=== PATIENT | male | born 1980 | race Caucasian/White ===

== ENCOUNTER 2016-05-04 16:59 | Observation (INO) | payer MEDICARE ==
[2016-05-04] MEDS ORDERED: MORPHINE SULFATE 4 MG INJ IV ONE (17:12)
--- NOTE | 2016-05-04 17:20 | ERPHSYRPT ---
- History of Present Illness Time Seen by Provider: 05/04/16 17:09 Historian: patient Exam Limitations: no limitations Patient Subjective Stated Complaint: PT REPORTS SUBSTERNAL CHEST PAIN BEGINNING THIS MORNING-STATES HE HAS HAD EPISODES OF BREAKING OUT IN A SWEAT-DENIES SOB- DENIES N/V/D-REPORTS COUGH BEGINNING 2 HRS AGO Triage Nursing Assessment: PT PINK WARM ET DRY-A & O X 3-NO COUGH NOTED DURING TRIAGE-RESP NONLABORED-RIGHT RADIAL PULSE REGULAR ET STRONG Physician History: 35-year-old white male with history of diabetes, renal failure, chronic pain, obstructive sleep apnea, myocardial infarction. Patient arrives with complaint of a pain in his substernal region nonradiating described as a pressure with occasional sharp intermittent components pain since noon today. He is not short of breath he has no nausea no vomiting no diarrhea he has no other complaints.. Past medical history includes diabetes, renal failure, chronic pain, obstructive sleep apnea, CVA, congestive heart failure, hypercholesterolemia, high blood pressure, myocardial infarction, bronchitis, pneumonia, anxiety, depression, prostate problems, CVA in 2001, [place] Past surgical history includes cardiac catheter, CABG, orthopedic surgery, anterior cruciate ligament repaired, cyst removed on left arm, cataract surgery Patient does state he is supposed to have surgery on his left anterior cruciate ligament next week and so he has not taken any aspirin. Timing/Duration: today, other (symptoms since noon) Activities at Onset: none Quality: pressure, sharpness Location: substernal Chest Pain Radiation: no radiation Severity of Pain-Max: moderate Severity of Pain-Current: moderate Modifying Factors: Improves With: nothing. Worsens With: antacids, breathing, coughing, defecating, eating, exertion, lying down, morphine, movement, nitroglycerin, oxygen, palpation, rest, aspirin, sitting up, change in position Associated Symptoms: No nausea, No vomiting, No palpitations, No heartburn, No abdominal pain, No shortness of breath, No cough, No hurts to breathe, No diaphoresis, No chills, No fever, No fatigue, No weakness, No swelling/lump in chest, No syncope, No rash, No headache, No dizziness, No edema, No back pain Prior Chest Pain/Cardiac Workup: heart attack Nitro Today/Relief: no nitro taken today Aspirin Treatment Today: no aspirin today Allergies/Adverse Reactions: hydroxyzine HCl [From Atarax] Adverse Reaction (Verified 05/04/16 17:05) Home Medications: Aspirin 81 mg PO DAILY 01/28/16 [History] Clonazepam [Klonopin] 1 mg PO BID 01/28/16 [History] Furosemide 20 mg [Lasix 20 mg] 20 mg PO BID 01/28/16 [History] Hydrocodone/APAP 10/325 mg [[place] 10/325 MG Tablet] 1 tab PO QID 01/28/16 [History] Lisinopril 20 mg [Zestril 20 MG] 20 mg PO DAILY 01/28/16 [History] PANTOPRAZOLE 40 mg Tablet [Protonix 40MG Tablet] 40 mg PO DAILY 01/28/16 [ History] Sitagliptin Phosphate [Januvia] 25 mg PO DAILY 01/28/16 [History] Hx Tetanus, Diphtheria Vaccination/Date Given: Yes (2008) Hx Influenza Vaccination/Date Given: No Hx Pneumococcal Vaccination/Date Given: No Immunizations Up to Date: Yes - Review of Systems Constitutional: No Fever, No Chills Eyes: No Symptoms Ears, Nose, & Throat: No Symptoms Respiratory: No Cough, No Dyspnea Cardiac: Chest Pain, No Edema, No Syncope Abdominal/Gastrointestinal: No Abdominal Pain, No Nausea, No Vomiting, No Diarrhea Genitourinary Symptoms: No Dysuria Musculoskeletal: No Back Pain, No Neck Pain Skin: No Rash Neurological: No Dizziness, No Focal Weakness, No Sensory Changes Psychological: No Symptoms Endocrine: No Symptoms All Other Systems: Reviewed and Negative - Past Medical History Pertinent Past Medical History: Yes Neurological History: Stroke ENT History: No Pertinent History Cardiac History: Congestive Heart Failure, High Cholesterol, Hypertension, Myocardial Infarction ([place]) Respiratory History: Bronchitis, Pneumonia, Sleep Apnea Endocrine Medical History: Diabetes Type II Musculoskeletal History: No Pertinent History GI Medical History: GERD History: Renal Disease Psycho-Social History: Anxiety, Depression Male Reproductive Disorders: Prostate Problems Other Medical History: PT HAD A STROKE IN FEB 2012. [place]. [place] in Apr 2011. [place] in September in 2015. Open heart in May - Past Surgical History Past Surgical History: Yes Neuro Surgical History: No Pertinent History Cardiac: CABG, Cardiac Catheterization Respiratory: No Pertinent History Gastrointestinal: No Pertinent History Genitourinary: No Pertinent History Musculoskeletal: Orthopedic Surgery Male Surgical History: No Pertinent History Other Surgical History: ACL REPLACED; CYST REMOVED IN LEFT ARM; CATARACT SURGERY IN 2011 - Social History Smoking Status: Former smoker Exposure to second hand smoke: No Drug Use: none Patient Lives Alone: No Significant Family History: heart disease - Nursing Vital Signs Temperature: 97.6 F Temperature Source: Oral Pulse Rate: 77 Respiratory Rate: 22 Pain Intensity: 6 - Physical Exam General Appearance: no apparent distress, alert Eye Exam: PERRL/EOMI, eyes nml inspection Ears, Nose, Throat Exam: normal ENT inspection, moist mucous membranes Neck Exam: normal inspection, non-tender, supple, full range of motion Respiratory Exam: normal breath sounds, lungs clear, No respiratory distress Cardiovascular Exam: regular rate/rhythm, normal heart sounds Gastrointestinal/Abdomen Exam: soft, No tenderness, No mass Back Exam: normal inspection, No CVA tenderness, No vertebral tenderness Extremity Exam: normal inspection, normal range of motion Neurologic Exam: alert, oriented x 3, cooperative, normal mood/affect, sensation nml, No motor deficits Skin Exam: normal color, warm, dry SpO2 Interpretation: normal (97%) SpO2: 97 Oxygen Delivery: Room Air - Course Nursing assessment & vital signs reviewed: Yes EKG Interpreted by Me: RATE (80 bpm), Sinus Rhythm, NORMAL AXIS, Other (EKG normal sinus rhythm 80 bpm normal axis no acute ST or T wave changes noted) - Radiology Exams Chest X-ray Interpretation: Interpreted by me, Negative, No Pneumonia, No Pneumothorax Ordered Tests: Active Orders 24 hr Category Date Time Status E/M Engineer STAT Care 05/04/16 17:12 Active EKG-ER Only STAT Care 05/04/16 17:12 Active IV Insertion STAT Care 05/04/16 17:12 Active CHEST 1 VIEW (PORTABLE) Stat Exams 05/04/16 17:15 Taken CBC W DIFF Stat Lab 05/04/16 17:40 Completed CMP Stat Lab 05/04/16 17:40 Completed TROPONIN Q3H Lab 05/04/16 17:40 Completed TROPONIN Q3H Lab 05/04/16 20:15 Ordered TROPONIN Q3H Lab 05/04/16 23:15 Ordered TROPONIN Q3H Lab 05/05/16 02:15 Ordered TROPONIN Q3H Lab 05/05/16 05:15 Ordered Medication Summary Discontinued Medications Generic Name Dose Route Start Last Admin Trade Name Freq PRN Reason Stop Dose Admin Aspirin 324 mg 05/04/16 18:31 05/04/16 18:35 Baby Aspirin 81 Mg Chew PO 05/04/16 18:32 324 mg STAT ONE Administration Aspirin Confirm 05/04/16 18:35 Baby Aspirin 81 Mg Chew Administered 05/04/16 18:36 Dose 324 mg .ROUTE .STK-MED ONE Morphine Sulfate 4 mg 05/04/16 17:12 05/04/16 17:28 Morphine Sulfate 4 Mg Inj IV 05/04/16 17:13 4 mg STAT ONE Administration Morphine Sulfate Confirm 05/04/16 17:24 Morphine Sulfate 4 Mg Inj Administered 05/04/16 17:25 Dose 4 mg .ROUTE .STK-MED ONE Lab/Rad Data: Laboratory Result Diagrams 05/04/16 17:40 05/04/16 17:40 Laboratory Results 05/04/16 05/04/16 05/04/16 Range/Units 17:40 17:40 17:40 WBC 7.8 (4.0-10.5) K/mm3 RBC 4.99 (4.1-5.6) M/mm3 Hgb 14.7 (12.5-18.0) gm/dl Hct 44.3 (42-50) % MCV 88.8 (78-100) fl MCH 29.5 (26-32) pg MCHC 33.2 (32-36) g/dl RDW 13.2 (11.5-14.0) % Plt Count 226 (150-450) K/mm3 MPV 10.6 H (6-9.5) fl Gran % 41.6 (36.0-66.0) % Lymphocytes % 46.7 H (24.0-44.0) % Monocytes % 9.6 (0.0-12.0) % Eosinophils % 1.7 (0.00-5.0) % Basophils % 0.4 (0.0-0.4) % Basophils # 0.03 (0-0.4) Sodium 133 L (136-145) mEq/L Potassium 4.3 (3.5-5.1) mEq/L Chloride 96 L (98-107) mEq/L Carbon Dioxide 24.5 (21-32) mEq/L Anion Gap 16.4 H (5-15) MEQ/L BUN 14 (9-20) mg/dL Creatinine 0.76 (0.55-1.30) mg/dl Estimated GFR > 60 ML/MIN Glucose 221 H (70-110) MG/DL Calcium 8.9 (8.5-10.1) mg/dL Total Bilirubin 0.3 (0.2-1.0) mg/dL AST 22 (15-37) U/L ALT 41 (12-78) U/L Alkaline Phosphatase 140 H (46-116) U/L Troponin I < 0.017 (0.000-0.056) ng/ml Serum Total Protein 7.7 (6.4-8.2) gm/dL Albumin 3.7 (3.4-5.0) g/dL - Progress Progress: improved Air Movement: fair Progress Note: 05/04/16 18:32 Patient's chest x-ray and EKG are essentially normal troponin within normal limits. Patient states he is having occasional twinges in his left anterior chest of pain. I have offered to repeat his troponin are asking if they can be admitted for rule out. Will discuss case with Dr. Delacruz. . 05/04/16 19:[address] Portillo is corporate communications manager for Dr. Delacruz, I discussed the patient's case with Dr. portlilo he requested that I discuss this with Dr. Irby, the patient's foundation digger or the foundation digger on-call for him. I discussed the case with Dr. Emory Weiss, patient's labs in the clinical findings were gone over with him. He was agreeable to having the patient admitted here for rule out with Dr. portillo would have to admit patient. Patient will be transferred if there is any problems which come up or elevated enzymes to the hospital where Dr. Emory Weiss is available. This was Relayed to Dr. portillo. She is agreeable to placing patient on observation for chest pain rule out. - Departure Time of Disposition: 19:33 Departure Disposition: Observation Clinical Impression: Chest pain Qualifiers: Chest pain type: unspecified Qualified Code(s): R07.9 - Chest pain, unspecified Condition: Fair Critical Care Time: No
[2016-05-04] MEDS ORDERED: MORPHINE SULFATE 4 MG INJ ONE ×2 (17:24→21:23)
[2016-05-04 17:51] LABS: BASOPHIL % 0.4 % (0.0-0.4); Eosinophil % 1.7 % (0.00-5.0); Granulocytes % 41.6 % (36.0-66.0); Lymphocytes % 46.7 % (24.0-44.0); Mean Cell Volume 88.8 fl (78-100); Mean Corpuscular Hemoglobin 29.5 pg (26-32); Mean Platelet Volume 10.6 fl (6-9.5); Monocytes % 9.6 % (0.0-12.0); Platelet Count 226 K/mm3 (150-450); Red Blood Count 4.99 M/mm3 (4.1-5.6); Red Cell Distribution Width 13.2 % (11.5-14.0); White Blood Count 7.8 K/mm3 (4.0-10.5)
[2016-05-04 18:07] LABS: ALBUMIN 3.7 g/dL (3.4-5.0); ALKALINE PHOSPHATASE 140 U/L (46-116); ANION GAP 16.4 MEQ/L (5-15); BILIRUBIN,TOTAL 0.3 mg/dL (0.2-1.0); BLOOD UREA NITROGEN 14 mg/dL (9-20); CHLORIDE 96 mEq/L (98-107); Carbon Dioxide 24.5 mEq/L (21-32); Glucose 221 MG/DL (70-110); Potassium 4.3 mEq/L (3.5-5.1); SGOT/AST 22 U/L (15-37); SGPT/ALT 41 U/L (12-78); SODIUM 133 mEq/L (136-145); Total Protein 7.7 gm/dL (6.4-8.2)
[2016-05-04] MEDS ORDERED: BABY ASPIRIN 81 MG CHEW PO ONE (18:31)
[2016-05-04] MEDS ORDERED: BABY ASPIRIN 81 MG CHEW ONE (18:35)
[2016-05-04] MEDS ORDERED: Zofran 4 MG/2 ML VIAL IV PRN (20:42)
[2016-05-04] MEDS ORDERED: Senokot-S Tablet PO PRN (20:42)
[2016-05-04] MEDS ORDERED: NovoLIN R SQ PRN (20:42)
[2016-05-04] MEDS ORDERED: MILK OF MAGNESIA 30 ML PO PRN (20:42)
[2016-05-04] MEDS ORDERED: Sodium Chloride 0.9% 500 ML 500 ML IV SCH (20:42)
[2016-05-04] MEDS ORDERED: MORPHINE SULFATE 2 MG INJ IV PRN (20:42)
[2016-05-04] MEDS ORDERED: MAALOX ES 30 ML UNIT DOSE PO PRN (20:42)
[2016-05-04] MEDS ORDERED: TYLENOL 325 MG PO PRN (20:42)
[2016-05-04] MEDS: Klonopin 0.5 MG PO SCH (23:17)
--- NOTE | 2016-05-05 08:12 | PCM.DCORD ---
- Discharge Discharge Date: 05/05/16 Condition: Good Prescriptions: New Naproxen 375 mg [Naprosyn 375 mg] 375 mg PO BID #60 tablet Continue Sitagliptin Phosphate [Januvia] 25 mg PO DAILY Furosemide 20 mg [Lasix 20 mg] 20 mg PO BID PANTOPRAZOLE 40 mg Tablet [Protonix 40MG Tablet] 40 mg PO DAILY Aspirin 81 mg PO DAILY Lisinopril 20 mg [Zestril 20 MG] 20 mg PO DAILY Clonazepam [Klonopin] 1 mg PO BID Hydrocodone/APAP 10/325 mg [[place] 10/325 MG Tablet] 1 tab PO QID Follow up with: GABI ANTOINE [Primary Care Provider] - MICHAEL POLO [ACTIVE STAFF] - 1 Week
--- NOTE | 2016-05-05 08:41 | XRAY ---
Indication: Mid chest pain. Comparison: January 31, 2016 Portable apical lordotic chest again demonstrates normal heart and lungs with a few calcified granulomas and previous CABG surgery. Bony thorax intact. No new/acute findings. Impression: Stable nonacute chest.
[2016-05-05] MEDS: Klonopin 0.5 MG PO SCH (09:26)
[2016-05-05] MEDS ORDERED: Protonix 40MG Tablet PO SCH (10:00)
[2016-05-05] MEDS ORDERED: Januvia 50 MG PO SCH (10:00)
[2016-05-05] MEDS ORDERED: Ecotrin 325 MG PO SCH (10:00)
[2016-05-05] MEDS ORDERED: ECOTRIN 81 MG PO SCH (10:00)
[2016-05-05] MEDS ORDERED: Zestril 20 MG PO SCH (10:00)
[2016-05-05] MEDS ORDERED: LASIX 20 MG PO SCH (10:00)
[2016-05-05] MEDS ORDERED: NON-FORMULARY ITEM (Sitagliptin Phosphate [Januvia] 25 MG) PO SCH (10:00)
[2016-05-05] MEDS ORDERED: NON-FORMULARY ITEM (Aspirin [Aspirin] 81 MG) PO SCH (10:00)
[2016-05-05 11:43] VITALS: BP 117/65; PULSE 87; O2SAT 96
--- NOTE | 2016-05-05 11:43 | SSS ---
DISCHARGE DIAGNOSIS: CHEST PAIN. HISTORY OF PRESENT ILLNESS: The patient is a 35 year-old white male patient presenting with complaints of substernal chest pain beginning general claims agent of 05/04/2016. He presented himself to the emergency room in the early afternoon and he was subsequently admitted to the hospital to rule out myocardial infarction. PAST MEDICAL HISTORY: Significant for previous myocardial infarction. He had heart surgery before. He also has hypertension, hyperlipidemia, anxiety, depression, prostate problems. He reports that he also had previous CVA in 2001. PAST SURGICAL HISTORY: Coronary artery bypass grafting. Orthopedic surgery on his anterior cruciate ligament. SOCIAL HISTORY: The patient does not currently smoke or drink. His reports that they have been under a lot of stress recently. HOME MEDICATIONS: Includes aspirin, Klonopin, Lasix, [place], lisinopril, pantoprazole, and Januvia which he has not been taking recently because he cannot afford it. ALLERGIES: HYDROXYZINE. SENSITIVE TO METFORMIN CAUSED HIM RENAL FAILURE TEMPORARILY. PHYSICAL EXAMINATION: Revealed a moderately obese white male patient who is currently in no obvious distress. His most recent vital signs showed temperature 97.7F, pulse 83, respiratory rate 20, blood pressure 112/70. O2 saturation 97% on room air. HEENT: Normocephalic, atraumatic. Pupils equal round reactive to light. Extraocular movements intact. Oropharynx is pink and moist. NECK: Supple without lymphadenopathy, thyromegaly or JVD. CHEST: Clear to auscultation with good air movement bilaterally. It is nontender to press on the sternal region. He has a scar from median sternotomy. ABDOMEN: Soft, nontender, nondistended without hepatosplenomegaly or masses. EXTREMITIES: Without clubbing, cyanosis or edema. NEUROLOGIC: The patient is alert and oriented x3. LAB DATA AND TESTS: Showed CBC with hemoglobin 14.7, white blood cell count 7,800, PLT count 226,000. His troponins have all been less than 0.017. His metabolic panel showed a nonfasting glucose of 221, BUN 14, creatinine 0.76, sodium 133, potassium 4.3. Liver enzymes were normal. The patient's lipid panel showed LDL cholesterol 102 and HDL 44, triglycerides 463. The patient's EKG showed normal sinus rhythm, no evidence of any electrical abnormalities of the heart. HOSPITAL COURSE: A patient with chest pain likely chest wall pain. He has been ruled out for myocardial infarction. Consultation was obtained from his junior paralegal over the phone and having been ruled out he is felt to be ready for discharge home. He was given a prescription for naproxen 375 to take twice a day for the chest pain and instructed to follow us in the office in one week and to follow with his junior paralegal when he is available.
== END 2016-05-05 12:20 | disposition home or self-care (01) ==
LOC: ED 16:59 → MED SURG 20:41
PROVIDERS: ADMIT Internal Medicine; ATTEND Internal Medicine
DX: R07.89 Other chest pain (principal); I10 Essential (primary) hypertension; E78.5 Hyperlipidemia, unspecified; F41.8 Other specified anxiety disorders; I25.2 Old myocardial infarction; Z95.1 Presence of aortocoronary bypass graft; Z86.73 Personal history of transient ischemic attack (TIA), and cerebral infarction without residual deficits; Z79.899 Other long term (current) drug therapy
CPT/HCPCS: 36000; 36415; 71010; 80053; 80061; 82962; 83721; 84484; 85025; 93005; 93041; 99284; G0378; J2270

== ENCOUNTER 2016-07-25 19:45 | Emergency (ER) | payer MEDICARE ==
[2016-07-25] MEDS ORDERED: DUONEB 0.5-3 MG/3 ml Neb IH ONE ×2 (20:06→20:17)
--- NOTE | 2016-07-25 20:15 | ERPHSYRPT ---
- History of Present Illness Time Seen by Provider: 07/25/16 19:59 Source: patient Exam Limitations: no limitations Patient Subjective Stated Complaint: states that he has had a dry, non- productive cough and difficulty breathing since earlier today - reports pain at the right lower ribs and back - is worried that he may have pneumonia Triage Nursing Assessment: ambulatory to treatment area - steady gait - moves all extremities with equal strength. alert/oriented - flat affect. skin flushed/hot/dry - no rash/injury appreciated. resps non-labored, even per exertion - lung sounds diminished but clear Physician History: This is a 35-year-old white male with history of renal failure, chronic pain, sleep apnea, myocardial infarction, congestive heart failure. He arrives with complaint of pain in his right lower ribs anteriorly and laterally worse with breathing he states he's had some shortness of breath some wheezing and nonproductive cough symptoms for 3 days he's not had any fevers no nausea no vomiting. Past medical history includes diabetes, renal failure, chronic pain syndrome ( patient is on Roxicodone) Patient with history of sleep apnea, myocardial infarction, congestive heart failure, hypercholesterolemia, high blood pressure, myocardial infarction, bronchitis, pneumonia, anxiety, depression, prostate problems, CVA. Past surgical history includes cardiac catheter, CABG, orthopedic surgery, anterior cruciate ligament repair,. Timing/Duration: day(s) (3 days) Severity: moderate Modifying Factors: Improves With: other (patient on Roxicodone at home) Associated Symptoms: shortness of breath, cough, chills, chest pain (pain right lower ribs with breathing), No nausea, No vomiting, No abdominal pain, No heartburn, No diaphoresis, No fever, No headaches, No loss of appetite, No malaise, No rash, No syncope, No seizure Allergies/Adverse Reactions: hydroxyzine HCl [From Atarax] Adverse Reaction (Verified 07/25/16 19:49) metformin Adverse Reaction (Verified 07/25/16 19:49) Home Medications: Aspirin 81 mg PO DAILY 01/28/16 [History] Clonazepam [Klonopin] 1 mg PO BID 01/28/16 [History] Furosemide 20 mg [Lasix 20 mg] 20 mg PO BID 01/28/16 [History] Hydrocodone/APAP 10/325 mg [[place] 10/325 MG Tablet] 1 tab PO QID 01/28/16 [History] Lisinopril 20 mg [Zestril 20 MG] 20 mg PO DAILY 01/28/16 [History] PANTOPRAZOLE 40 mg Tablet [Protonix 40MG Tablet] 40 mg PO DAILY 01/28/16 [ History] Sitagliptin Phosphate [Apruvia] 25 mg PO DAILY 01/28/16 [History] Hx Tetanus, Diphtheria Vaccination/Date Given: Yes Hx Influenza Vaccination/Date Given: Yes Hx Pneumococcal Vaccination/Date Given: Yes Immunizations Up to Date: Yes - Review of Systems Constitutional: Chills, No Fever, No Fatigue, No Lethargy, No Malaise, No Night Sweats, No Weakness, No Weight Loss Eyes: No Symptoms Ears, Nose, & Throat: No Symptoms, No Ear Pain, No Ear Discharge, No Hearing Changes, No Tinnitus, No Nose Pain, No Nose Congestion, No Nose Discharge, No Sinus Drainage, No Epistaxis, No Mouth Pain, No Mouth Swelling, No Loose Teeth, No Throat Pain, No Throat Swelling Respiratory: Cough, Wheezing, Other (pain right lower ribs with breathing), No Cyanosis, No Dyspnea on Exertion (CARRERA), No Stridor Cardiac: No Chest Pain, No Edema, No Syncope Abdominal/Gastrointestinal: No Abdominal Pain, No Nausea, No Vomiting, No Diarrhea, No Constipation, No Hematemesis, No Hematochezia, No Melena, No Dysphagia, No Appetite Changes Genitourinary Symptoms: No Dysuria Musculoskeletal: No Back Pain, No Neck Pain Skin: No Rash Neurological: No Dizziness, No Focal Weakness, No Sensory Changes Psychological: No Symptoms Endocrine: No Symptoms All Other Systems: Reviewed and Negative - Past Medical History Pertinent Past Medical History: Yes Neurological History: Stroke, Other ENT History: No Pertinent History Cardiac History: Congestive Heart Failure, High Cholesterol, Hypertension, Myocardial Infarction ([place]) Respiratory History: Bronchitis, Pneumonia, Sleep Apnea Endocrine Medical History: Diabetes Type II Musculoskeletal History: No Pertinent History GI Medical History: GERD History: Renal Disease Psycho-Social History: Anxiety, Depression Male Reproductive Disorders: Prostate Problems Other Medical History: PT HAD A STROKE IN FEB 2012. [place] in Apr 2011. [place] in September2015. Open heart in May - Past Surgical History Past Surgical History: Yes Neuro Surgical History: No Pertinent History Cardiac: CABG, Cardiac Catheterization Respiratory: No Pertinent History Gastrointestinal: No Pertinent History Genitourinary: No Pertinent History Musculoskeletal: Orthopedic Surgery Male Surgical History: No Pertinent History Other Surgical History: ACL REPLACED; CYST REMOVED IN LEFT ARM; CATARACT SURGERY IN 2011 - Social History Smoking Status: Never smoker Exposure to second hand smoke: No Drug Use: none Patient Lives Alone: No Significant Family History: heart disease - Nursing Vital Signs Nursing Vital Signs: Initial Vital Signs Temperature 98.7 F Temperature Source Oral Pulse Rate 91 Respiratory Rate 18 Blood Pressure [] 126/70 Pain Intensity 7 - Physical Exam General Appearance: no apparent distress, alert Eye Exam: PERRL/EOMI, eyes nml inspection Ears, Nose, Throat Exam: normal ENT inspection, TMs normal, pharynx normal, moist mucous membranes Neck Exam: normal inspection, non-tender, supple, full range of motion Respiratory Exam: diminished breath sounds (Mildly diminished breath sounds), No accessory muscle use, No crackles/rales, No rhonchi, No wheezing, No stridor , No pleural rub Cardiovascular Exam: regular rate/rhythm, normal heart sounds, normal peripheral pulses Gastrointestinal/Abdomen Exam: soft, normal bowel sounds, No tenderness, No mass Back Exam: normal inspection, normal range of motion, No CVA tenderness, No vertebral tenderness Extremity Exam: normal inspection, normal range of motion, pelvis stable Neurologic Exam: alert, oriented x 3, cooperative, normal mood/affect, nml cerebellar function, nml station & gait, sensation nml, No motor deficits Skin Exam: normal color, warm, dry, No rash Lymphatic Exam: No adenopathy SpO2 Interpretation: normal (99%) SpO2: 99 Oxygen Delivery: Room Air - Course Nursing assessment & vital signs reviewed: Yes EKG Interpreted by Me: RATE (89 bpm), NORMAL AXIS, Other (EKG, normal sinus rhythm, 89 bpm, normal axis, no acute ST or T waved changes,essentially normal EKG. compared to May 05, 2016) - Radiology Exams Chest X-ray Interpretation: Interpreted by me, Other (cxr:decreased inspiratory phase , no acute disease process noted) Ordered Tests: Active Orders 24 hr Category Date Time Status EKG-ER Only STAT Care 07/25/16 20:10 Active IV Insertion STAT Care 07/25/16 20:04 Active Pulse Oximetry (ED) STAT Care 07/25/16 20:10 Active CHEST 1 VIEW (PORTABLE) Stat Exams 07/25/16 20:05 Taken AMYLASE Stat Lab 07/25/16 21:00 Completed CBC W DIFF Stat Lab 07/25/16 20:04 Completed CMP Stat Lab 07/25/16 21:00 Completed D-DIMER QUANTITATION Stat Lab 07/25/16 21:00 Completed LIPASE Stat Lab 07/25/16 21:00 Completed Manual Differential NC Stat Lab 07/25/16 20:04 Completed NT PRO BNP Stat Lab 07/25/16 21:00 Completed TROPONIN Stat Lab 07/25/16 21:00 Completed TROPONIN Stat Lab 07/25/16 21:00 Completed Respiratory Nebulizer STAT RT 07/25/16 20:06 Completed Medication Summary Discontinued Medications Generic Name Dose Route Start Last Admin Trade Name Freq PRN Reason Stop Dose Admin Acetaminophen/Hydrocodone Bitart 1 tab 07/25/16 20:20 07/25/16 20:49 [place] 5/325 Mg PO 07/25/16 20:21 1 tab STAT ONE Administration Acetaminophen/Hydrocodone Bitart Confirm 07/25/16 20:49 [place] 5/325 Mg Administered 07/25/16 20:50 Dose 1 tab .ROUTE .STK-MED ONE Albuterol/Ipratropium 3 ml 07/25/16 20:06 07/25/16 20:19 Duoneb 0.5-3 Mg/3 Ml Neb IH 07/25/16 20:07 3 ml STAT ONE Administration Albuterol/Ipratropium Confirm 07/25/16 20:17 Duoneb 0.5-3 Mg/3 Ml Neb Administered 07/25/16 20:18 Dose 3 ml IH .STK-MED ONE Lab/Rad Data: Laboratory Result Diagrams 07/25/16 20:04 07/25/16 21:00 Laboratory Results 07/25/16 07/25/16 07/25/16 Range/Units 21:00 21:00 21:00 WBC (4.0-10.5) K/mm3 RBC (4.1-5.6) M/mm3 Hgb (12.5-18.0) gm/dl Hct (42-50) % MCV (78-100) fl MCH (26-32) pg MCHC (32-36) g/dl RDW (11.5-14.0) % Plt Count (150-450) K/mm3 MPV (6-9.5) fl D-Dimer < 0.200 (0.00-0.49) mg/L Sodium 135 L (136-145) mEq/L Potassium 4.5 (3.5-5.1) mEq/L Chloride 99 (98-107) mEq/L Carbon Dioxide 24.1 (21-32) mEq/L Anion Gap 16.5 H (5-15) MEQ/L BUN 15 (9-20) mg/dL Creatinine 1.01 (0.55-1.30) mg/dl Estimated GFR > 60 ML/MIN Glucose 177 H (70-110) MG/DL Calcium 8.9 (8.5-10.1) mg/dL Total Bilirubin 0.3 (0.2-1.0) mg/dL AST 23 (15-37) U/L ALT 32 (12-78) U/L Alkaline Phosphatase 124 H (46-116) U/L Troponin I < 0.017 < 0.017 (0.000-0.056) ng/ml NT-Pro-B Natriuret Pep 27 (0-125) pg/ml Serum Total Protein 7.7 (6.4-8.2) gm/dL Albumin 3.8 (3.4-5.0) g/dL Amylase 28 (25-115) U/L Lipase 183 (73-393) U/L // Range/Units 20:04 WBC 10.7 H (4.0-10.5) K/mm3 RBC 4.83 (4.1-5.6) M/mm3 Hgb 14.1 (12.5-18.0) gm/dl Hct 43.1 (42-50) % MCV 89.2 (78-100) fl MCH 29.2 (26-32) pg MCHC 32.7 (32-36) g/dl RDW 13.7 (11.5-14.0) % Plt Count 283 (150-450) K/mm3 MPV 10.2 H (6-9.5) fl D-Dimer (0.00-0.49) mg/L Sodium (136-145) mEq/L Potassium (3.5-5.1) mEq/L Chloride (98-107) mEq/L Carbon Dioxide (21-32) mEq/L Anion Gap (5-15) MEQ/L BUN (9-20) mg/dL Creatinine (0.55-1.30) mg/dl Estimated GFR ML/MIN Glucose (70-110) MG/DL Calcium (8.5-10.1) mg/dL Total Bilirubin (0.2-1.0) mg/dL AST (15-37) U/L ALT (12-78) U/L Alkaline Phosphatase (46-116) U/L Troponin I (0.000-0.056) ng/ml NT-Pro-B Natriuret Pep (0-125) pg/ml Serum Total Protein (6.4-8.2) gm/dL Albumin (3.4-5.0) g/dL Amylase (25-115) U/L Lipase (73-393) U/L - Progress Progress: improved Progress Note: 07/25/16 21:42 Patient's labs normal chest x-ray normal EKG no acute changes. Will discharge with Zithromax and albuterol inhaler. Patient to take his pain medications as prescribed by his family doctor - Departure Time of Disposition: 21:43 Departure Disposition: Home Clinical Impression: Bronchitis, Non-cardiac chest pain Condition: Fair Critical Care Time: No Instructions: Cough -- Adult Additional Instructions: Return home. Zithromax Z-JESSEE as directed. Albuterol inhaler 2 puffs every 4-6 hours as needed. Pain medications as prescribed by your family doctor. Follow-up with your family doctor. Return for acute distress or for severe symptoms Prescriptions: Albuterol Common Canister [Proventil Common Canister] 2 puff IH Q4-6HPRN PRN #1 puff PRN Reason: sob, wheezing Azithromycin 250 mg [Zithromax 250 MG TABLET] 0 mg PO ZPACK #6 tablet
[2016-07-25] MEDS ORDERED: NORCO 5/325 MG PO ONE ×2 (20:20→21:49)
[2016-07-25] MEDS ORDERED: NORCO 5/325 MG ONE ×2 (20:49→21:53)
[2016-07-25 21:03] LABS: Mean Cell Volume 89.2 fl (78-100); Mean Corpuscular Hemoglobin 29.2 pg (26-32); Mean Platelet Volume 10.2 fl (6-9.5); Platelet Count 283 K/mm3 (150-450); Red Blood Count 4.83 M/mm3 (4.1-5.6); Red Cell Distribution Width 13.7 % (11.5-14.0); White Blood Count 10.7 K/mm3 (4.0-10.5)
[2016-07-25 21:30] LABS: ALBUMIN 3.8 g/dL (3.4-5.0); ALKALINE PHOSPHATASE 124 U/L (46-116); ANION GAP 16.5 MEQ/L (5-15); BILIRUBIN,TOTAL 0.3 mg/dL (0.2-1.0); BLOOD UREA NITROGEN 15 mg/dL (9-20); CHLORIDE 99 mEq/L (98-107); Carbon Dioxide 24.1 mEq/L (21-32); Glucose 177 MG/DL (70-110); LIPASE 183 U/L (73-393); Potassium 4.5 mEq/L (3.5-5.1); SGOT/AST 23 U/L (15-37); SGPT/ALT 32 U/L (12-78); SODIUM 135 mEq/L (136-145); TROPONIN < 0.017 ng/ml (0.000-0.056); Total Protein 7.7 gm/dL (6.4-8.2)
[2016-07-25 21:36] LABS: TROPONIN < 0.017 ng/ml (0.000-0.056)
[2016-07-25] MEDS ORDERED: Zithromax 250 MG TABLET PO ONE (21:46)
[2016-07-25] MEDS ORDERED: Zithromax 250 MG TABLET ONE (21:52)
[2016-07-25 22:01] VITALS: BP 118/69; PULSE 96; O2SAT 97
[2016-07-25] MEDS ORDERED: Ventolin Hfa MDI IH PRN (22:28)
[2016-07-25 23:26] LABS: ATYPICAL LYMPHS 5 %; Platelet Estimate NORMAL (NORMAL); Total Cells Counted 100
--- NOTE | 2016-07-26 19:08 | XRAY ---
Exam: AP portable chest film from 2100 hrs. on 07/25/2016. Comparison: AP upright portable chest film from 1725 hrs. on 05/04/2016. Indication: Cough, right lower chest pain with deep inspiration Findings: The film was obtained in a lordotic projection. Lung volumes are low, apparently due to a poor inspiratory effort. There is evidence of prior sternotomy. No air space infiltrates, vascular congestion, pneumothorax, or pleural fluid is seen. A tiny calcified granuloma seen within the right midlung field. The bony thorax appears grossly intact. Impression: 1. Low lung volumes, apparently due to decreased inspiratory effort. 2. Otherwise, no acute cardiopulmonary disease is seen. I again see evidence of prior sternotomy.
== END 2016-07-25 22:06 | disposition home or self-care (01) ==
LOC: ED 19:45
DX: J40 Bronchitis, not specified as acute or chronic (principal); R07.89 Other chest pain; R05 Cough; E11.9 Type 2 diabetes mellitus without complications; N18.9 Chronic kidney disease, unspecified; G89.4 Chronic pain syndrome; I21.3 ST elevation (STEMI) myocardial infarction of unspecified site; I50.9 Heart failure, unspecified; E78.00 Pure hypercholesterolemia, unspecified; I10 Essential (primary) hypertension; Z79.899 Other long term (current) drug therapy
CPT/HCPCS: 36000; 36415; 71010; 80053; 82150; 83690; 83880; 84484; 85025; 85379; 93005; 94640; 99284; 99285; A9270-GY

== ENCOUNTER 2016-10-13 14:34 | Emergency (ER) | payer MEDICARE ==
[2016-10-13] MEDS ORDERED: Carafate 1 GM PO ONE ×2 (14:39→14:54)
[2016-10-13] MEDS ORDERED: BABY ASPIRIN 81 MG CHEW PO ONE (14:39)
[2016-10-13] MEDS ORDERED: Pepcid 20 MG VIAL IV ONE ×2 (14:39→14:53)
[2016-10-13] MEDS ORDERED: NITRO-BID 2% UD PACKETS TOP ONE (14:39)
[2016-10-13] MEDS ORDERED: Sodium Chloride 0.9% 1000 ML 1,000 ML IV SCH (14:45)
--- NOTE | 2016-10-13 14:47 | ERPHSYRPT ---
- History of Present Illness Time Seen by Provider: 10/13/16 14:39 Historian: patient, family Exam Limitations: no limitations Patient Subjective Stated Complaint: PT HERE FOR PAIN TO LEFT SIDE RIB AND ABD THAT STARTED YESTERDAY AND GETTING WORSE, PT STATES PAIN RADIATES AROUND TO LEFT FLANK AT TIMES,NO COUGH ,NO FEVER, Triage Nursing Assessment: PT ALERT, RESP EASY, CHEST CLEAR, SKIN W/D.PINK. EDEMA TO LOWER LEGS THAT IS NORMAL FOR PT Physician History: left side pain and flank; also chest apin and sob when mowing the lawn; no fever ; no cough; 8/10; no travel; no exposure; no trauma; aggravated with food; BM and voiding ok Timing/Duration: today (worse and left flank now), yesterday (onset), intermittent, gradual onset, worse Activities at Onset: activity (mowing lawn wiht CP; rest in chair wiht left flank pain) Quality: aching, dullness Location: substernal (chest), other (left flank and side with eating) Chest Pain Radiation: no radiation Severity of Pain-Max: severe (8/10) Severity of Pain-Current: severe (7/10) Modifying Factors: Improves With: eating (worsens), exertion (aggravates chest pain), rest (helps CP) Associated Symptoms: heartburn, abdominal pain (left flank), shortness of breath Prior Chest Pain/Cardiac Workup: angina, cardiac cath, heart attack Nitro Today/Relief: no nitro taken today, provided by ED Aspirin Treatment Today: no aspirin today, provided by ED Allergies/Adverse Reactions: hydroxyzine HCl [From Atarax] Adverse Reaction (Verified 10/13/16 14:43) metformin Adverse Reaction (Verified 10/13/16 14:43) Home Medications: Aspirin 81 mg PO DAILY 01/28/16 [History] Clonazepam [Klonopin] 1 mg PO BID 01/28/16 [History] Furosemide 20 mg [Lasix 20 mg] 20 mg PO BID 01/28/16 [History] Lisinopril 20 mg [Zestril 20 MG] 20 mg PO DAILY 01/28/16 [History] PANTOPRAZOLE 40 mg Tablet [Protonix 40MG Tablet] 40 mg PO DAILY 01/28/16 [ History] Sitagliptin Phosphate [Januvia] 25 mg PO DAILY 01/28/16 [History] Lamotrigine [Lamictal] 75 mg BID 10/13/16 [History] Oxycodone HCl 5 mg Ir [Oxy-IR 5 MG] 5 mg TID 10/13/16 [History] Hx Tetanus, Diphtheria Vaccination/Date Given: Yes Hx Influenza Vaccination/Date Given: Yes Hx Pneumococcal Vaccination/Date Given: Yes Immunizations Up to Date: Yes - Review of Systems Constitutional: No Symptoms Eyes: No Symptoms Ears, Nose, & Throat: No Symptoms Respiratory: Dyspnea, Dyspnea on Exertion (CARRERA), No Cough, No Cyanosis, No Wheezing Cardiac: Chest Pain, Edema, No Palpitations, No Syncope, No Orthopnea Abdominal/Gastrointestinal: Abdominal Pain, Nausea, No Vomiting, No Diarrhea, No Constipation Genitourinary Symptoms: Flank Pain (left), No Dysuria, No Hematuria, No Incontinence, No Testicle Pain Musculoskeletal: Back Pain (left), No Neck Pain, No Fall, No Injury Skin: No Symptoms Neurological: No Symptoms Psychological: No Symptoms Endocrine: Polyuria, Polydipsia, Excessive Sweating Hematologic/Lymphatic: No Symptoms Immunological/Allergic: No Symptoms - Past Medical History Pertinent Past Medical History: Yes Neurological History: Stroke, Other ENT History: No Pertinent History Cardiac History: Congestive Heart Failure, High Cholesterol, Hypertension, Myocardial Infarction ([place]) Respiratory History: Bronchitis, Pneumonia, Sleep Apnea Endocrine Medical History: Diabetes Type II Musculoskeletal History: No Pertinent History GI Medical History: GERD History: Renal Disease Psycho-Social History: Anxiety, Depression Male Reproductive Disorders: Prostate Problems Other Medical History: PT HAD A STROKE IN FEB 2012. [place] in Apr 2011. [place] in September in 2015. Open heart in May - Past Surgical History Past Surgical History: Yes Neuro Surgical History: No Pertinent History Cardiac: CABG, Cardiac Catheterization Respiratory: No Pertinent History Gastrointestinal: No Pertinent History Genitourinary: No Pertinent History Musculoskeletal: Orthopedic Surgery Male Surgical History: No Pertinent History Other Surgical History: ACL REPLACED; CYST REMOVED IN LEFT ARM; CATARACT SURGERY IN 2010 - Social History Smoking Status: Former smoker Exposure to second hand smoke: No Alcohol Use: None Drug Use: none Patient Lives Alone: No Significant Family History: heart disease, diabetes, hypertension - Nursing Vital Signs Nursing Vital Signs: Initial Vital Signs Temperature 97.5 F Temperature Source Oral Pulse Rate [] 70 Pulse Rate 78 Respiratory Rate 16 Blood Pressure [] 130/96 Pain Intensity 7 - Physical Exam General Appearance: severe distress, alert, obese (morbid) Eye Exam: PERRL/EOMI, eyes nml inspection, No photophobia Ears, Nose, Throat Exam: normal ENT inspection, TMs normal, pharynx normal, moist mucous membranes Neck Exam: normal inspection, non-tender, supple, full range of motion, No meningismus, No carotid bruit, No JVD Respiratory Exam: normal breath sounds, lungs clear, airway intact, No chest tenderness, No respiratory distress, No crackles/rales, No rhonchi, No wheezing Cardiovascular Exam: regular rate/rhythm, normal heart sounds, normal peripheral pulses, capillary refill 2-3 sec, No murmur, No friction rub, No edema Gastrointestinal/Abdomen Exam: soft, normal bowel sounds, distention (softly obese), No tenderness, No guarding, No pulsatile mass, No rebound, No organomegaly Rectal Exam: deferred Back Exam: normal inspection, normal range of motion, No CVA tenderness, No vertebral tenderness, No rash, No muscle spasm Extremity Exam: normal inspection, normal range of motion, No pelvis stable, No shelbie's sign, No pedal edema Neurologic Exam: alert, oriented x 3, cooperative, clinical engineer II-XII nml as tested, normal mood/affect, nml cerebellar function, nml station & gait Skin Exam: normal color, warm, dry, No rash, No petechiae SpO2 Interpretation: normal SpO2: 99 Oxygen Delivery: Room Air - Course Nursing assessment & vital signs reviewed: Yes EKG Interpreted by Me: RATE (76), Sinus Rhythm, NORMAL AXIS, NORMAL INTERVALS, NORMAL QRS, NORMAL ST-T, Other (unchanged from 07-25-16) Rhythm Strip: Rate (76), Normal Sinus Rhythm - Radiology Exams Chest X-ray Interpretation: Reviewed by me, Teleradiologist Report, No Pneumonia, No Pneumothorax, Nml Alignment, Nml Heart Size, No Infiltrates Ordered Tests: Active Orders 24 hr Category Date Time Status Housekeeping Lead STAT Care 10/13/16 14:39 Active EKG-ER Only STAT Care 10/13/16 14:39 Active IV Insertion STAT Care 10/13/16 14:39 Active CHEST 1 VIEW (PORTABLE) Stat Exams 10/13/16 14:40 Completed CBC W DIFF Stat Lab 10/13/16 15:10 Completed CMP Stat Lab 10/13/16 15:10 Completed NT PRO BNP Stat Lab 10/13/16 15:10 Completed PROTIME WITH INR Stat Lab 10/13/16 15:10 Completed TROPONIN Q3H Lab 10/13/16 15:10 Completed TROPONIN Q3H Lab 10/13/16 17:45 Ordered TROPONIN Q3H Lab 10/13/16 20:45 Ordered TROPONIN Q3H Lab 10/13/16 23:45 Ordered TROPONIN Q3H Lab 10/14/16 02:45 Ordered UA W/RFX UR CULTURE Stat Lab 10/13/16 15:10 Completed Medication Summary Generic Name Dose Route Start Last Admin Trade Name Freq PRN Reason Stop Dose Admin Sodium Chloride 1,000 mls @ 50 mls/hr 10/13/16 14:45 10/13/16 14:57 Sodium Chloride 0.9% 1000 Ml IV 11/12/16 14:44 50 mls/hr .Q20H ABHISHEK Administration Discontinued Medications Generic Name Dose Route Start Last Admin Trade Name Freq PRN Reason Stop Dose Admin Aspirin 324 mg 10/13/16 14:39 10/13/16 14:58 Baby Aspirin 81 Mg Chew PO 10/13/16 14:40 324 mg STAT ONE Administration Aspirin Confirm 10/13/16 14:53 Baby Aspirin 81 Mg Chew Administered 10/13/16 14:54 Dose 324 mg .ROUTE .STK-MED ONE Famotidine 20 mg 10/13/16 14:39 10/13/16 14:58 Pepcid 20 Mg Vial IV 10/13/16 14:40 20 mg STAT ONE Administration Famotidine Confirm 10/13/16 14:53 Pepcid 20 Mg Vial Administered 10/13/16 14:54 Dose 20 mg IV .STK-MED ONE Morphine Sulfate 2 mg 10/13/16 15:34 10/13/16 15:42 Morphine Sulfate 2 Mg Inj IV 10/13/16 15:35 2 mg STAT ONE Administration Morphine Sulfate Confirm 10/13/16 15:38 Morphine Sulfate 2 Mg Inj Administered 10/13/16 15:39 Dose 2 mg .ROUTE .STK-MED ONE Nitroglycerin 1 gm 10/13/16 14:39 10/13/16 14:57 Nitro-Bid 2% Ud Packets TOP 10/13/16 14:40 1 gm STAT ONE Administration Nitroglycerin Confirm 10/13/16 14:53 Nitro-Bid 2% Ud Packets Administered 10/13/16 14:54 Dose 1 gm .ROUTE .STK-MED ONE Promethazine HCl 12.5 mg 10/13/16 15:34 10/13/16 15:42 Phenergan 25 Mg Inj IV 10/13/16 15:35 12.5 mg STAT ONE Administration Promethazine HCl Confirm 10/13/16 15:37 Phenergan 25 Mg Inj Administered 10/13/16 15:38 Dose 25 mg .ROUTE .STK-MED ONE Sucralfate 1 g 10/13/16 14:39 10/13/16 14:58 Carafate 1 Gm PO 10/13/16 14:40 1 g STAT ONE Administration Sucralfate Confirm 10/13/16 14:54 Carafate 1 Gm Administered 10/13/16 14:55 Dose 1 g PO .STK-MED ONE Lab/Rad Data: Laboratory Result Diagrams 10/13/16 15:10 10/13/16 15:10 Laboratory Results 10/13/16 10/13/16 10/13/16 Range/Units 15:10 15:10 15:10 WBC (4.0-10.5) K/mm3 RBC (4.1-5.6) M/mm3 Hgb (12.5-18.0) gm/dl Hct (42-50) % MCV (78-100) fl MCH (26-32) pg MCHC (32-36) g/dl RDW (11.5-14.0) % Plt Count (150-450) K/mm3 MPV (6-9.5) fl Gran % (36.0-66.0) % Lymphocytes % (24.0-44.0) % Monocytes % (0.0-12.0) % Eosinophils % (0.00-5.0) % Basophils % (0.0-0.4) % Basophils # (0-0.4) INR 1.04 (0.8-3.0) Sodium (136-145) mEq/L Potassium (3.5-5.1) mEq/L Chloride (98-107) mEq/L Carbon Dioxide (21-32) mEq/L Anion Gap (5-15) MEQ/L BUN (9-20) mg/dL Creatinine (0.55-1.30) mg/dl Estimated GFR ML/MIN Glucose (70-110) MG/DL Calcium (8.5-10.1) mg/dL Total Bilirubin (0.2-1.0) mg/dL AST (15-37) U/L ALT (12-78) U/L Alkaline Phosphatase (46-116) U/L Troponin I < 0.017 (0.000-0.056) ng/ml NT-Pro-B Natriuret Pep (0-125) pg/ml Serum Total Protein (6.4-8.2) gm/dL Albumin (3.4-5.0) g/dL Ur Collection Type VOID Urine Color YELLOW (YELLOW) Urine Appearance CLEAR (CLEAR) Urine pH 6.0 (5-6) Ur Specific Marlin 1.010 (1.005-1.025) Urine Protein NEGATIVE (Negative) Urine Ketones NEGATIVE (NEGATIVE) Urine Blood NEGATIVE (0-5) Mendez/ul Urine Nitrite NEGATIVE (NEGATIVE) Urine Bilirubin NEGATIVE (NEGATIVE) Urine Urobilinogen NORMAL (0-1) mg/dL Ur Leukocyte Esterase NEGATIVE (NEGATIVE) Urine Glucose 100 (NEGATIVE) mg/dL Specimen Received 10/13/16 1510 10/13/16 10/13/16 Range/Units 15:10 15:10 WBC 7.7 (4.0-10.5) K/mm3 RBC 4.62 (4.1-5.6) M/mm3 Hgb 12.9 (12.5-18.0) gm/dl Hct 40.5 L (42-50) % MCV 87.7 (78-100) fl MCH 27.9 (26-32) pg MCHC 31.9 L (32-36) g/dl RDW 13.6 (11.5-14.0) % Plt Count 242 (150-450) K/mm3 MPV 10.0 H (6-9.5) fl Gran % 46.6 (36.0-66.0) % Lymphocytes % 42.4 (24.0-44.0) % Monocytes % 8.4 (0.0-12.0) % Eosinophils % 2.2 (0.00-5.0) % Basophils % 0.4 (0.0-0.4) % Basophils # 0.03 (0-0.4) INR (0.8-3.0) Sodium 135 L (136-145) mEq/L Potassium 4.8 (3.5-5.1) mEq/L Chloride 98 (98-107) mEq/L Carbon Dioxide 27.6 (21-32) mEq/L Anion Gap 13.8 (5-15) MEQ/L BUN 16 (9-20) mg/dL Creatinine 0.85 (0.55-1.30) mg/dl Estimated GFR > 60 ML/MIN Glucose 217 H (70-110) MG/DL Calcium 9.1 (8.5-10.1) mg/dL Total Bilirubin 0.40 (0.2-1.0) mg/dL AST 32 (15-37) U/L ALT 45 (12-78) U/L Alkaline Phosphatase 112 (46-116) U/L Troponin I (0.000-0.056) ng/ml NT-Pro-B Natriuret Pep 146 H (0-125) pg/ml Serum Total Protein 7.2 (6.4-8.2) gm/dL Albumin 3.5 (3.4-5.0) g/dL Ur Collection Type Urine Color (YELLOW) Urine Appearance (CLEAR) Urine pH (5-6) Ur Specific Marlin (1.005-1.025) Urine Protein (Negative) Urine Ketones (NEGATIVE) Urine Blood (0-5) Mendez/ul Urine Nitrite (NEGATIVE) Urine Bilirubin (NEGATIVE) Urine Urobilinogen (0-1) mg/dL Ur Leukocyte Esterase (NEGATIVE) Urine Glucose (NEGATIVE) mg/dL Specimen Received reviewed - Progress Progress: improved, re-examined (after meds) Air Movement: good Progress Note: 10/13/16 14:52 EKG wnl; CXR and labs pending; meds ordered; at bedside; will monitor and recheck 10/13/16 15:26 rechecked; CBC wnl; U/A ok except Glu 100; no relief of pain with meds to date; VS ok; pain mostly left side; will monitor and check CXR; EKG wnl; 10/13/16 15:29 CXR - NAD; will medicate for pain and recheck; INR 1.04 10/13/16 15:57 rechecked after pain meds and slight releif; no change otherwise; Trop wnl 10/13/16 16:05 rechecked; family at bedside; reviewed results; discussed treatment plan and d/ c instructions; patient has pain meds at home; Blood Culture(s) Obtained: No Antibiotics given: No Counseled pt/family regarding: lab results, diagnosis, need for follow-up, rad results - Departure Time of Disposition: 16:06 Departure Disposition: Home Clinical Impression: Left sided chest pain Condition: Stable Critical Care Time: No Referrals: GABI ANTOINE [Primary Care Provider] - Instructions: Atypical Chest Pain Additional Instructions: rest; take home pain meds; hydration; Follow-up with family doctor as directed. Call for appointment. Return if any problems. If you smoke please stop. Call or follow up with your family doctor for assistance if you need it to stop. Please wear your seatbelt when driving. Have a nice day. Thank you for allowing us to participate in your care today. :o) Dr Bladimir Hays
[2016-10-13] MEDS ORDERED: BABY ASPIRIN 81 MG CHEW ONE (14:53)
[2016-10-13] MEDS ORDERED: NITRO-BID 2% UD PACKETS ONE (14:53)
[2016-10-13] MEDS ORDERED: Sodium Chloride 0.9% 1000 ML 1,000 ML ONE (14:54)
[2016-10-13 15:17] LABS: BASOPHIL % 0.4 % (0.0-0.4); Eosinophil % 2.2 % (0.00-5.0); Granulocytes % 46.6 % (36.0-66.0); Lymphocytes % 42.4 % (24.0-44.0); Mean Cell Volume 87.7 fl (78-100); Mean Corpuscular Hemoglobin 27.9 pg (26-32); Monocytes % 8.4 % (0.0-12.0); Platelet Count 242 K/mm3 (150-450); Red Blood Count 4.62 M/mm3 (4.1-5.6); Red Cell Distribution Width 13.6 % (11.5-14.0); White Blood Count 7.7 K/mm3 (4.0-10.5)
[2016-10-13 15:18] LABS: ADD URINE CULTURE? NO (NO); Bilirubin NEGATIVE (NEGATIVE); Blood NEGATIVE Ery/ul (0-5); COMPLETE URINE MICROSCOPIC? NO; Collection Type VOID; Glucose 100 mg/dL (NEGATIVE); Leukocyte Esterase NEGATIVE (NEGATIVE)
[2016-10-13 15:25] LABS: INR 1.04 (0.8-3.0); PROTIME 11.7 SECONDS (8.83-12.87)
--- NOTE | 2016-10-13 15:31 | XRAY ---
Indication: Short of breath. Comparison: July 25, 2016. Portable apical lordotic chest again demonstrates normal heart, lungs, and bony thorax with previous cardiothoracic surgery.
[2016-10-13] MEDS ORDERED: Phenergan 25 MG INJ IV ONE (15:34)
[2016-10-13] MEDS ORDERED: MORPHINE SULFATE 2 MG INJ IV ONE (15:34)
[2016-10-13] MEDS ORDERED: Phenergan 25 MG INJ ONE (15:37)
[2016-10-13] MEDS ORDERED: MORPHINE SULFATE 2 MG INJ ONE (15:38)
[2016-10-13 15:57] LABS: ALBUMIN 3.5 g/dL (3.4-5.0); ALKALINE PHOSPHATASE 112 U/L (46-116); ANION GAP 13.8 MEQ/L (5-15); BLOOD UREA NITROGEN 16 mg/dL (9-20); CHLORIDE 98 mEq/L (98-107); Carbon Dioxide 27.6 mEq/L (21-32); Glucose 217 MG/DL (70-110); SGOT/AST 32 U/L (15-37); SGPT/ALT 45 U/L (12-78); SODIUM 135 mEq/L (136-145); Total Protein 7.2 gm/dL (6.4-8.2)
[2016-10-13 15:58] LABS: Potassium 4.8 mEq/L (3.5-5.1)
[2016-10-13 16:22] VITALS: BP 131/68; PULSE 71; O2SAT 97
== END 2016-10-13 16:20 | disposition home or self-care (01) ==
LOC: ED 14:34
DX: R07.89 Other chest pain (principal); R10.9 Unspecified abdominal pain; R06.02 Shortness of breath; Y93.H2 Activity, gardening and landscaping; R12 Heartburn; Z79.899 Other long term (current) drug therapy; I50.9 Heart failure, unspecified; E78.00 Pure hypercholesterolemia, unspecified; I10 Essential (primary) hypertension; I25.2 Old myocardial infarction; E11.9 Type 2 diabetes mellitus without complications
CPT/HCPCS: 36000; 36415; 71010; 80053; 81002; 83880; 84484; 85025; 85610; 93005; 93041; 96360; 96361; 96374; 96375; 99284; J2270; J2550; A9270-GY

== ENCOUNTER 2016-11-25 05:48 | Day surgery (SDC) | payer MEDICARE ==
[2016-11-25] MEDS ORDERED: DIPRIVAN 200 MG/20 ML IV ONE (05:49)
[2016-11-25] MEDS ORDERED: Ketamine HCl 50 MG/ML IV ONE (05:49)
[2016-11-25] MEDS ORDERED: Lactated Ringers 1,000 ML IV SCH (06:00)
[2016-11-25 08:10] VITALS: BP 149/81; PULSE 77; O2SAT 99
--- NOTE | 2016-11-25 08:12 | OP ---
SURGERY DATE/TIME: 11/25/2016 0700 PREOPERATIVE DIAGNOSIS: Epigastric pain. POSTOPERATIVE DIAGNOSIS: Moderate gastritis to the antrum. PROCEDURE: Esophagogastroduodenoscopy with biopsy. SURGEON: Dr. Delacruz. ANESTHESIA: Medications were given by the anesthesia department. BRIEF HISTORY: The patient is a 36 year old white male patient who reports for endoscopic evaluation. He has been having abdominal pain and been to the emergency room a couple of times for this abdominal pain. CT scans have been negative. The patient does have a significant heart history and takes aspirin 81 mg on a regular basis. He had apparently quit this a couple of weeks ago per our instruction and has had some improvement since that time but still had pain. The patient was felt the need to have endoscopic evaluation. He was appraised of the risks of the procedure including the risk of perforation, phlebitis, untoward reaction to medication, bleeding and missed lesions. The patient verbalized his understanding and desired to have the procedure performed. DESCRIPTION OF PROCEDURE: The patient was placed in left lateral decubitus position. He had a bite block placed. He had continuous pulse oximetry, ECG monitoring, intermittent blood pressure monitoring and tidal CO2 monitoring during the examination. The flexible Olympus gastroscope was used to intubate the oropharynx. A view of the larynx was obtained and was normal. The scope was easily passed in the esophagus which was normal throughout its length. The stomach was entered where normal gastric rugal folds were seen and these distended nicely with insufflation of air. The scope was passed along the greater curvature of the stomach to the antrum. The pylorus is encountered and intubated. Duodenum inspected and found to be normal. The scope was withdrawn towards the stomach. Again, a retroflex view was obtained of the lesser curvature, fundus and cardia regions of the stomach and these appeared to be normal. The scope was then redirected towards the gastric antrum and biopsies were obtained to rule out the presence of Helicobacter pylori-type organisms. The scope was then removed from the patient who tolerated the procedure well and was sent back to outpatient recovery in good condition.
== END 2016-11-25 08:14 | disposition home or self-care (01) ==
LOC: SDC 05:48
PROVIDERS: ATTEND Family Medicine
PROC: 0DB78ZX Excision of Stomach, Pylorus, Via Natural or Artificial Opening Endoscopic, Diagnostic (ICD-10-PCS; principal; 2016-11-25)
DX: K29.70 Gastritis, unspecified, without bleeding (principal)
CPT/HCPCS: 00740; 36415; 88305; 88312; J2704

== ENCOUNTER 2017-04-28 11:32 | Observation (INO) | payer MEDICARE ==
[2017-04-28] MEDS ORDERED: NITRO-BID 2% UD PACKETS TOP ONE (11:46)
[2017-04-28 11:59] LABS: BASOPHIL % 0.2 % (0.0-0.4); Basophil (Absolute #) 0.02 (0-0.4); Eosinophil % 0.5 % (0.00-5.0); Eosinophil (Absolute #) 0.05 (0-0.5); Granulocyte Absolute (ANC) 5.93 (1.4-6.9); Granulocytes % 59.7 % (36.0-66.0); Hematocrit 47.5 % (42-50); Hemoglobin 14.5 gm/dl (12.5-18.0); Lymphocyte (Absolute #) 3.29 (1.0-4.6); Lymphocytes % 33.2 % (24.0-44.0); Mean Cell Volume 81.2 fl (78-100); Mean Corpuscular Hgb Concent. 30.5 g/dl (32-36); Mean Platelet Volume 9.8 fl (6-9.5); Monocyte (Absolute #) 0.63 (0.0-1.3); Monocytes % 6.4 % (0.0-12.0); Platelet Count 372 K/mm3 (150-450); Red Blood Count 5.85 M/mm3 (4.1-5.6); Red Cell Distribution Width 15.2 % (11.5-14.0); White Blood Count 9.9 K/mm3 (4.0-10.5)
[2017-04-28] MEDS ORDERED: Sodium Chloride 0.9% 1000 ML 1,000 ML IV SCH (12:00)
[2017-04-28 12:01] LABS: Mean Corpuscular Hemoglobin 24.7 pg (26-32)
[2017-04-28] MEDS ORDERED: NITRO-BID 2% UD PACKETS ONE (12:03)
[2017-04-28] MEDS ORDERED: Sodium Chloride 0.9% 1000 ML 1,000 ML ONE (12:03)
--- NOTE | 2017-04-28 12:06 | XRAY ---
Indication: Chest pain. Comparison: October 13, 2016. Portable chest again demonstrates normal heart, lungs, and bony thorax with incidental calcified granulomas and previous cardiothoracic surgery.
--- NOTE | 2017-04-28 12:45 | ERPHSYRPT ---
- History of Present Illness Time Seen by Provider: 04/28/17 11:35 Historian: patient, family Patient Subjective Stated Complaint: Pt states "My chest started to hurt last night and it is not getting any better. I had bypass surgery at age 30." Triage Nursing Assessment: Pt alert and oriented X 3, skin pwd. pt ambulates with an upright steady gait, able to speak in clear full sentences. Physician History: CC: chest pain Hx: 36 y/o patient of Dr Delacruz/Mahamed/Jose/Ajit. He has hx of DM, HTN, renal insuff. 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 He does not know details. Surgery in [address] Garcia. He has left chest pressure since last night. Took ASA 325mg at home last night and this AM. Pressure still continues. Numbness in left arm and leg. No weakness. Not short of breath. Has not recently used NTG. Nitro Today/Relief: no nitro taken today Aspirin Treatment Today: provided at home Allergies/Adverse Reactions: hydroxyzine HCl [From Atarax] Adverse Reaction (Verified 11/25/16 06:11) Swelling affected kidney functions metformin Adverse Reaction (Verified 11/25/16 06:11) Home Medications: Clonazepam [Klonopin] 1 mg PO DAILY PRN PRN 01/28/16 [History] Furosemide 20 mg [Lasix 20 mg] 20 mg PO BID 01/28/16 [History] Lisinopril 20 mg [Zestril 20 MG] 20 mg PO DAILY 01/28/16 [History] PANTOPRAZOLE 40 mg Tablet [Protonix 40MG Tablet] 40 mg PO DAILY 01/28/16 [ History] Sitagliptin Phosphate [Januvia] 25 mg PO DAILY 01/28/16 [History] Lamotrigine [Lamictal] 75 mg DAILY 10/13/16 [History] Buprenorphine HCl [Belbuca] 1 strip PO BID 11/22/16 [History] Oxycodone HCl 5 mg Ir [Oxy-IR 5 MG] 1 tab PO QID 11/22/16 [History] Empagliflozin [Jardiance] 10 mg PO DAILY 04/28/17 [History] Liraglutide [Victoza 2-Noel] 1 tab PO DAILY 04/28/17 [History] Testosterone Cypionate [Depo-Testosterone] 200 mg IM 04/28/17 [History] Hx Tetanus, Diphtheria Vaccination/Date Given: Yes Hx Influenza Vaccination/Date Given: Yes Hx Pneumococcal Vaccination/Date Given: Yes Immunizations Up to Date: Yes - Review of Systems Constitutional: Malaise, No Fever, No Chills Eyes: No Symptoms Ears, Nose, & Throat: No Symptoms Respiratory: No Cough, No Dyspnea Cardiac: Chest Pain, No Edema, No Palpitations, No Syncope Abdominal/Gastrointestinal: No Abdominal Pain, No Nausea, No Vomiting Musculoskeletal: No Back Pain Skin: No Rash Neurological: Parasthesia (left arm and leg), No Focal Weakness, No Headache All Other Systems: Reviewed and Negative - Past Medical History Pertinent Past Medical History: Yes Neurological History: Stroke, Other ENT History: Cataracts Cardiac History: Arrhythmia, Congestive Heart Failure, High Cholesterol, Hypertension, Myocardial Infarction (CT) Respiratory History: Bronchitis, Pneumonia, Sleep Apnea Endocrine Medical History: Diabetes Type II Musculoskeletal History: No Pertinent History GI Medical History: GERD History: Renal Disease Psycho-Social History: Anxiety, Depression Male Reproductive Disorders: Prostate Problems Other Medical History: PT HAD A STROKE IN FEB 2012. CT in Apr 2011. CT in September2015. Open heart in May. cataract repair R eye - Past Surgical History Past Surgical History: Yes Neuro Surgical History: No Pertinent History Cardiac: CABG, Cardiac Catheterization Respiratory: No Pertinent History Gastrointestinal: No Pertinent History Genitourinary: No Pertinent History Musculoskeletal: Orthopedic Surgery Male Surgical History: No Pertinent History Other Surgical History: ACL REPLACED; CYST REMOVED IN LEFT ARM; CATARACT SURGERY IN 2010 - Social History Smoking Status: Former smoker Exposure to second hand smoke: No Alcohol Use: None Drug Use: none Patient Lives Alone: No Significant Family History: heart disease, diabetes, hypertension - Nursing Vital Signs Nursing Vital Signs: Initial Vital Signs Temperature 97.7 F 04/28/17 11:34 Pulse Rate 96 H 04/28/17 11:34 Respiratory Rate 16 04/28/17 11:34 Blood Pressure 133/76 04/28/17 11:34 O2 Sat by Pulse Oximetry 98 04/28/17 11:34 Pain Scale Pain Intensity 7 - Physical Exam General Appearance: alert Eye Exam: PERRL/EOMI Ears, Nose, Throat Exam: normal ENT inspection, moist mucous membranes Neck Exam: normal inspection, non-tender, supple Respiratory Exam: normal breath sounds Cardiovascular Exam: regular rate/rhythm, other (diminished femoral pulses) Gastrointestinal/Abdomen Exam: soft, No tenderness, No distention Back Exam: normal inspection Extremity Exam: normal inspection, normal range of motion, No calf tenderness, No pedal edema Neurologic Exam: alert, oriented x 3, cooperative, sensation nml, No motor deficits Skin Exam: warm, dry, No rash SpO2 Interpretation: normal SpO2: 98 Oxygen Delivery: Room Air - Course Nursing assessment & vital signs reviewed: Yes EKG Interpreted by Me: RATE (93), Sinus Rhythm, NORMAL AXIS, NORMAL INTERVALS ( QTc 408), NORMAL QRS, NORMAL ST-T - Radiology Exams cxr X-ray Interpretation: Teleradiologist Report, Negative Ordered Tests: Active Orders 24 hr Category Date Time Status Business Support Specialist STAT Care 04/28/17 11:46 Active EKG-ER Only STAT Care 04/28/17 11:46 Active IV Insertion STAT Care 04/28/17 11:46 Active Pulse Oximetry (ED) STAT Care 04/28/17 11:46 Active CHEST 1 VIEW (PORTABLE) Stat Exams 04/28/17 11:46 Completed CBC W DIFF Stat Lab 04/28/17 11:53 Completed CMP Stat Lab 04/28/17 11:53 Completed NT PRO BNP Stat Lab 04/28/17 11:53 Completed PROTIME WITH INR Stat Lab 04/28/17 11:53 Completed PTT Stat Lab 04/28/17 11:53 Completed TROPONIN Q3H Lab 04/28/17 11:53 Completed TROPONIN Q3H Lab 04/28/17 15:00 Ordered TROPONIN Q3H Lab 04/28/17 18:00 Ordered TROPONIN Q3H Lab 04/28/17 21:00 Ordered TROPONIN Q3H Lab 04/29/17 00:00 Ordered Medication Summary Generic Name Dose Route Start Last Admin Trade Name Freq PRN Reason Stop Dose Admin Sodium Chloride 1,000 mls @ 50 mls/hr 04/28/17 12:00 04/28/17 12:11 Sodium Chloride 0.9% 1000 Ml IV 05/28/17 11:59 50 mls/hr .Q20H ABHISHEK Administration Discontinued Medications Generic Name Dose Route Start Last Admin Trade Name Freq PRN Reason Stop Dose Admin Fentanyl Citrate 100 mcg 04/28/17 13:36 Sublimaze 100 Mcg/2 Ml IV 04/28/17 13:37 STAT ONE Nitroglycerin 1 gm 04/28/17 11:46 04/28/17 12:11 Nitro-Bid 2% Ud Packets TOP 04/28/17 11:47 1 gm STAT ONE Administration Nitroglycerin Confirm 04/28/17 12:03 Nitro-Bid 2% Ud Packets Administered 04/28/17 12:04 Dose 1 gm .ROUTE .STK-MED ONE Lab/Rad Data: Laboratory Result Diagrams 04/28/17 11:53 04/28/17 11:53 Laboratory Results 04/28/17 04/28/17 04/28/17 Range/Units 11:53 11:53 11:53 WBC (4.0-10.5) K/mm3 RBC (4.1-5.6) M/mm3 Hgb (12.5-18.0) gm/dl Hct (42-50) % MCV (78-100) fl MCH (26-32) pg MCHC (32-36) g/dl RDW (11.5-14.0) % Plt Count (150-450) K/mm3 MPV (6-9.5) fl Gran % (36.0-66.0) % Lymphocytes % (24.0-44.0) % Monocytes % (0.0-12.0) % Eosinophils % (0.00-5.0) % Basophils % (0.0-0.4) % Basophils # (0-0.4) INR 1.19 (0.8-3.0) APTT 30.0 (24.1-36.1) SECONDS Sodium 135 L (136-145) mEq/L Potassium 4.3 (3.5-5.1) mEq/L Chloride 100 (98-107) mEq/L Carbon Dioxide 27.6 (21-32) mEq/L Anion Gap 11.8 (5-15) MEQ/L BUN 9 (9-20) mg/dL Creatinine 0.83 (0.55-1.30) mg/dl Estimated GFR > 60 ML/MIN Glucose 158 H (70-110) MG/DL Calcium 8.7 (8.5-10.1) mg/dL Total Bilirubin 0.50 (0.2-1.0) mg/dL AST 28 (15-37) U/L ALT 52 (12-78) U/L Alkaline Phosphatase 89 (46-116) U/L Troponin I < 0.017 (0.000-0.056) ng/ml NT-Pro-B Natriuret Pep 15 (0-125) pg/ml Serum Total Protein 7.5 (6.4-8.2) gm/dL Albumin 3.6 (3.4-5.0) g/dL 04/28/17 Range/Units 11:53 WBC 9.9 (4.0-10.5) K/mm3 RBC 5.85 H (4.1-5.6) M/mm3 Hgb 14.5 (12.5-18.0) gm/dl Hct 47.5 (42-50) % MCV 81.2 (78-100) fl MCH 24.7 L (26-32) pg MCHC 30.5 L (32-36) g/dl RDW 15.2 H (11.5-14.0) % Plt Count 372 (150-450) K/mm3 MPV 9.8 H (6-9.5) fl Gran % 59.7 (36.0-66.0) % Lymphocytes % 33.2 (24.0-44.0) % Monocytes % 6.4 (0.0-12.0) % Eosinophils % 0.5 (0.00-5.0) % Basophils % 0.2 (0.0-0.4) % Basophils # 0.02 (0-0.4) INR (0.8-3.0) APTT (24.1-36.1) SECONDS Sodium (136-145) mEq/L Potassium (3.5-5.1) mEq/L Chloride (98-107) mEq/L Carbon Dioxide (21-32) mEq/L Anion Gap (5-15) MEQ/L BUN (9-20) mg/dL Creatinine (0.55-1.30) mg/dl Estimated GFR ML/MIN Glucose (70-110) MG/DL Calcium (8.5-10.1) mg/dL Total Bilirubin (0.2-1.0) mg/dL AST (15-37) U/L ALT (12-78) U/L Alkaline Phosphatase (46-116) U/L Troponin I (0.000-0.056) ng/ml NT-Pro-B Natriuret Pep (0-125) pg/ml Serum Total Protein (6.4-8.2) gm/dL Albumin (3.4-5.0) g/dL - Progress Progress Note: 04/28/17 13:40 Pain better with NTG but still present. CXR appears wnl with no sign of TAD. Do not feel risk of contrast dye load outweighs benefits for CTA at this time. Consulted Dr Irby the patient's cardiology and he advised chest pain observation, tele, serial troponins. Called Dr Delacruz who agreed. Discussed with : Jayme Will see patient in: hospital (observation) Counseled pt/family regarding: lab results, diagnosis, need for follow-up, rad results - Departure Time of Disposition: 13:41 Departure Disposition: Observation (Tele) Clinical Impression: Chest pain, rule out acute myocardial infarction, hx anomolous right coronary takeoff, Hx of renal failure Condition: Stable Critical Care Time: No Referrals: GABI DELACRUZ [Primary Care Provider] -
[2017-04-28 12:49] LABS: INR 1.19 (0.8-3.0)
[2017-04-28 13:04] LABS: ALBUMIN 3.6 g/dL (3.4-5.0); ALKALINE PHOSPHATASE 89 U/L (46-116); ANION GAP 11.8 MEQ/L (5-15); BLOOD UREA NITROGEN 9 mg/dL (9-20); CHLORIDE 100 mEq/L (98-107); Calcium 8.7 mg/dL (8.5-10.1); Carbon Dioxide 27.6 mEq/L (21-32); Creatinine 1 0.83 mg/dl (0.55-1.30); EST GLOMERULAR FILTRATION RATE > 60 ML/MIN; Glucose 158 MG/DL (70-110); NT PRO BNP 15 pg/ml (0-125); Potassium 4.3 mEq/L (3.5-5.1); SGOT/AST 28 U/L (15-37); SGPT/ALT 52 U/L (12-78); SODIUM 135 mEq/L (136-145); Total Protein 7.5 gm/dL (6.4-8.2)
[2017-04-28] MEDS ORDERED: SUBLIMAZE 100 MCG/2 ML IV ONE (13:36)
[2017-04-28] MEDS ORDERED: SUBLIMAZE 100 MCG/2 ML ONE (13:41)
[2017-04-28] MEDS ORDERED: NITRO-BID 2% UD PACKETS TOP SCH (14:48)
[2017-04-28] MEDS ORDERED: MAALOX ES 30 ML UNIT DOSE PO PRN (14:48)
[2017-04-28] MEDS ORDERED: Sodium Chloride 0.9% 500 ML 500 ML IV SCH (14:48)
[2017-04-28] MEDS ORDERED: MILK OF MAGNESIA 30 ML PO PRN (14:48)
[2017-04-28] MEDS ORDERED: TYLENOL 325 MG PO PRN (14:48)
[2017-04-28] MEDS ORDERED: Senokot-S Tablet PO PRN (14:48)
[2017-04-28] MEDS ORDERED: Zofran 4 MG/2 ML VIAL IV PRN (14:48)
[2017-04-28] MEDS ORDERED: NON-FORMULARY ITEM (Clonazepam [Klonopin] 1 MG) PO PRN (16:11)
[2017-04-28] MEDS ORDERED: PROVENTIL COMMON CANISTER IH PRN (16:11)
[2017-04-28] MEDS ORDERED: DEPO-TESTOSTERONE IM SCH (16:15)
[2017-04-28] MEDS ORDERED: Klonopin 0.5 MG PO PRN (16:16)
[2017-04-28] MEDS ORDERED: MEDICATION INTERVENTION MC PRN (16:21)
[2017-04-28] MEDS: Zestril 20 MG PO SCH (16:43)
[2017-04-28] MEDS: Protonix 40MG Tablet PO SCH (16:44)
[2017-04-28] MEDS: Oxy-IR 5 MG PO SCH ×2 (16:44→21:30)
[2017-04-28] MEDS: LASIX 20 MG PO SCH (16:44)
[2017-04-28] MEDS: NovoLOG Insulin SQ PRN ×2 (16:59→22:15)
[2017-04-28] MEDS: Januvia 50 MG PO SCH (16:59)
[2017-04-28] MEDS: lamICTAL 100MG TABLET PO SCH (18:21)
[2017-04-28] MEDS ORDERED: BUPRENORPHINE PO SCH (22:00)
[2017-04-28] MEDS ORDERED: Oxy-IR 5 MG PO ONE (23:30)
[2017-04-29 06:57] LABS: Risk Ratio 4.1
[2017-04-29] MEDS: NovoLOG Insulin SQ PRN ×2 (07:48→16:50)
[2017-04-29] MEDS ORDERED: Ecotrin 325 MG PO SCH (10:00)
[2017-04-29] MEDS ORDERED: NON-FORMULARY ITEM (Sitagliptin Phosphate [Januvia] 25 MG) PO SCH (10:00)
[2017-04-29] MEDS ORDERED: LAMOTRIGINE 75 MG PO SCH (10:00)
[2017-04-29] MEDS: Januvia 50 MG PO SCH (10:21)
[2017-04-29] MEDS: lamICTAL 100MG TABLET PO SCH (10:22)
[2017-04-29] MEDS: LASIX 20 MG PO SCH ×2 (10:23→16:49)
[2017-04-29] MEDS: Protonix 40MG Tablet PO SCH (10:24)
[2017-04-29] MEDS: Zestril 20 MG PO SCH (10:24)
[2017-04-29] MEDS: Oxy-IR 5 MG PO SCH ×3 (10:24→16:49)
[2017-04-29 16:37] VITALS: BP 147/70; PULSE 95; O2SAT 95
--- NOTE | 2017-04-29 17:12 | PCM.DS ---
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 There was some thought of aortic dissection, but pt had renal failure previously with IV dye so CTA was not ordered. EKG without acute changes. On examination by Dr. Delacruz the pt's symptoms were not consistent with aortic dissection at that time so he was kept to rule out MA. Troponins are negative x 5. He is denying chest pain currently. He does frequently have chest pain and his electronics hardware design engineer, Dr. Irby, is aware of this. He is tolerating po well and ready to d/c home. - Vitals & Intake/Output Vital Signs: Vital Signs Temperature 97.2 F 04/29/17 16:00 Pulse Rate 95 H 04/29/17 16:00 Respiratory Rate 22 04/29/17 16:00 Blood Pressure 147/70 04/29/17 16:00 O2 Sat by Pulse Oximetry 95 04/29/17 16:00 Intake & Output: Intake & Output 04/27/17 04/28/17 04/29/17 04/30/17 11:59 11:59 11:59 11:59 Intake Total 2736 480 Balance 2736 480 Weight 138.8 kg - Lab Result Diagrams: 04/28/17 11:53 04/28/17 11:53 Lab Results-Last 24 Hrs: Accuchecks Date 04/29/17 Date 04/29/17 Time 11:30 Time 07:30 Accucheck Value: 114 Accucheck Value: 261 Accucheck Value: 209 Lab Results-Last 24 Hours 04/28/17 04/28/17 04/28/17 Range/Units 18:22 20:45 Unknown Hemoglobin A1c 6.2 (4.5-6.2) Troponin I < 0.017 < 0.017 (0.000-0.056) ng/ml Triglycerides (30-200) mg/dL Cholesterol (100-200) mg/dL LDL Cholesterol (5-99) mg/dL HDL Cholesterol (35-60) mg/dL Heart Disease Risk Ratio 04/29/17 04/29/17 Range/Units 00:00 05:45 Hemoglobin A1c (4.5-6.2) Troponin I < 0.017 (0.000-0.056) ng/ml Triglycerides 248 H (30-200) mg/dL Cholesterol 118 (100-200) mg/dL LDL Cholesterol 55 (5-99) mg/dL HDL Cholesterol 29 L (35-60) mg/dL Heart Disease Risk Ratio 4.1 Micro Results-Entire Visit: Accuchecks Date 04/29/17 Date 04/29/17 Time 11:30 Time 07:30 Accucheck Value: 114 Accucheck Value: 261 Accucheck Value: 209 - Procedures and Test Procedures and Tests throughout Hospitalization: Therapy Orders & Screens 04/28/17 15:17 RT Screen per Nursing Assess ONCE Comment: Protocol Order Physician Instructions: Greater than 3 points order RT Admission Screen Reason For Exam: Triggered on Admission Diagnosis: cp Diagnosis: cp Pneumonia: No Home O2: No Asthma: No CHF: No Home CPAP/BIPAP: Yes Home Nebs/MDI: Yes Total Points: 10 04/28/17 17:50 Respiratory MDI UD Comment: albuterol q4prn Diagnosis: cp 04/28/17 19:37 EKG ONCE Comment: Diagnosis: cp 04/28/17 21:00 BiPap/CPAP Assessment ROUTINE Comment: CPAP [id number] Diagnosis: cp 04/29/17 05:00 EKG ONCE Comment: Diagnosis: cp 04/30/17 05:00 EKG ONCE Comment: Diagnosis: cp 05/01/17 05:00 EKG ONCE Comment: Diagnosis: cp Discharge Exam General Appearance: no apparent distress, alert, obese Neurologic Exam: oriented x 3, cooperative Skin Exam: warm, dry, other (face with cheeks erythematous bilaterally), No rash Eye Exam: eyes nml inspection Ears, Nose, Throat Exam: moist mucous membranes Neck Exam: normal inspection, supple Respiratory Exam: normal breath sounds, lungs clear, No crackles/rales, No rhonchi, No wheezing Cardiovascular Exam: regular rate/rhythm, normal heart sounds, No murmur Extremity Exam: normal inspection, No pedal edema, No swelling Back Exam: normal inspection, No rash Final Diagnosis/Problem List - Final Discharge Diagnosis/Problem (1) Chest pain, rule out acute myocardial infarction Current Visit: Yes Status: Acute Assessment & Plan: EKG fine and troponins negative x 5. (2) Hx of renal failure Current Visit: Yes Status: Acute Assessment & Plan: Cr 0.83 today, doing great. (3) Hx of cardiomyopathy Current Visit: No Status: Acute Assessment & Plan: Pt is interested in a second opinion regarding his cardiac issues; will check in once with his 's electronics hardware design engineer, Dr. Ramos. - Discharge Disposition: Home, Self-Care Condition: Good Prescriptions: Continue Sitagliptin Phosphate [Januvia] 25 mg PO DAILY Furosemide 20 mg [Lasix 20 mg] 20 mg PO BID PANTOPRAZOLE 40 mg Tablet [Protonix 40MG Tablet] 40 mg PO DAILY Lisinopril 20 mg [Zestril 20 MG] 20 mg PO DAILY Clonazepam [Klonopin] 1 mg PO DAILY PRN PRN PRN Reason: Anxiety Albuterol Common Canister [Proventil Common Canister] 2 puff IH Q4- 6HPRN PRN #1 puff PRN Reason: sob, wheezing Lamotrigine [Lamictal] 75 mg PO DAILY Oxycodone HCl 5 mg Ir [Oxy-IR 5 MG] 1 tab PO QID Buprenorphine HCl [Belbuca] 1 strip PO BID Liraglutide [Victoza 2-Noel] 1.2 mg SQ DAILY Empagliflozin [Jardiance] 10 mg PO DAILY Testosterone Cypionate [Depo-Testosterone] 200 mg IM UD Follow up with: GABI DELACRUZ [Primary Care Provider] - Call for Appointment (follow up in 1 week )
--- NOTE | 2017-05-01 07:42 | HP ---
CHIEF COMPLAINT: Chest pain. HISTORY OF PRESENT ILLNESS: The patient is a 36 year-old white male patient who reports he has been having chest pain since last evening. He reports that the pain would come and go. He was having some pain into his left arm and actually down the left leg as well. The patient's history is significant for having had cardiovascular surgery by Dr. Garcia for an apparently abnormal insertion of right coronary artery. He apparently had a heart attack at that time as well and he sees Dr. Irby who is his yard worker. PAST MEDICAL HISTORY: The patient otherwise has chronic pain syndrome for which he takes Belbuca and Percocet. He has diabetes mellitus type 2, hyperlipidemia, cardiac arrhythmia. He apparently also had a minor stroke in February 2012 which he had no current residual effects from. MEDICATIONS: His other medications include Klonopin 1 mg PRN for anxiety, Lasix 20 mg twice a day, lisinopril 20 mg daily, pantoprazole 40 mg daily, Januvia 25 mg daily, Lamictal 75 mg a day, OxyIR 5 mg four times a day PRN pain, Jardiance 10 mg a day, Victoza 1 tablet daily and 200 mg testosterone IM injections. ALLERGIES: ATARAX, METFORMIN. It was also of note that during recent hospitalization he had some renal failure issues and in fact he may have even had dialysis for a short period of time but his kidney functions have resolved to normal again at this point. PHYSICAL EXAMINATION: Revealed a well-nourished, well-developed 36 year-old white male patient in no obvious distress presently. His vital signs showed a temperature 97.7F, pulse 96, respiratory rate 16 and blood pressure 133/76. He has good bounding pulses in all four extremities. HEENT: Normocephalic, atraumatic. Pupils equal round reactive to light. Extraocular movements intact. Oropharynx is pink and moist. NECK: Supple without lymphadenopathy, thyromegaly or JVD. CHEST: Clear to auscultation. HEART: Irregularity to the rhythm. No murmurs, rubs or gallops were heard. He does have a midline sternotomy scar. ABDOMEN: Soft, nontender, nondistended without hepatosplenomegaly or masses. EXTREMITIES: Without clubbing, cyanosis or edema. NEUROLOGIC: The patient is alert and oriented x3. No focal deficits were noted. LAB DATA AND TESTS: His troponin was less than 0.017. His hemoglobin was 14.5, white blood cell count 9,900, PLT count 372,000 and second troponin less than 0.017. His sugar was 158 nonfasting. BUN 9, creatinine 0.83. Electrolytes were normal. Liver enzymes were normal. International normalized ratio was 1.19. Portable chest revealed calcified granulomas and previous cardiovascular surgery findings. His telemetry tracing shows essentially a normal sinus rhythm ASSESSMENT: A patient with chest pain. He has been admitted to the hospital to follow serial enzymes. His yard worker has been notified and wished him to be admitted here. The patient was placed on telemetry on the medicine adams. He will be given his usual home medications as we do not want him to withdrawal from his pain medications at this point. He may be given his diabetic medications.
== END 2017-04-29 17:25 | disposition home or self-care (01) ==
LOC: ED 11:32 → MED SURG 14:43
PROVIDERS: ADMIT Family Medicine; ATTEND Family Medicine
DX: R07.9 Chest pain, unspecified (principal); N19 Unspecified kidney failure; I42.9 Cardiomyopathy, unspecified; E11.9 Type 2 diabetes mellitus without complications; E78.5 Hyperlipidemia, unspecified; Z79.899 Other long term (current) drug therapy
CPT/HCPCS: 36415; 71045; 80053; 80061; 82962; 83036; 83721; 83880; 84484; 85025; 85610; 85730; 93005; 93268; 94760; 96360; 99285; G0378; J3010; A9270-GY

== ENCOUNTER 2017-11-21 13:14 | Emergency (ER) | payer MEDICARE ==
--- NOTE | 2017-11-21 13:39 | ERPHSYRPT ---
- History of Present Illness Time Seen by Provider: 11/21/17 13:27 Historian: patient Exam Limitations: no limitations Physician History: The patient is a 37-year-old male complaining of chest pressure and nausea that began about 35 minutes ago. He is been slightly short of breath. He denies vomiting. She denies sweating. He came to the hospital from an outside town with his [id number] who is visiting her doctor for an appointment. During her appointment, he began to experience chest problems. He has a known cardiac history and he became worried. His past medical history is significant for CAD , CABG in 2011, cardiac catheter in 2013 that was clear, stroke times 3, high cholesterol, hypertension, diabetes, and GERD. Timing/Duration: today, hour(s) (1/2), constant, sudden Activities at Onset: none Quality: pressure Location: central Chest Pain Radiation: no radiation Severity of Pain-Max: moderate Severity of Pain-Current: moderate Modifying Factors: Improves With: nothing Associated Symptoms: nausea Prior Chest Pain/Cardiac Workup: cardiac cath, heart attack, recently seen/ treated (2 days ago at [facility]) Nitro Today/Relief: no nitro taken today Aspirin Treatment Today: no aspirin today Allergies/Adverse Reactions: hydroxyzine HCl [From Atarax] Adverse Reaction (Verified 11/25/16 06:11) Swelling affected kidney functions metformin Adverse Reaction (Verified 11/25/16 06:11) Home Medications: Furosemide 20 mg [Lasix 20 mg] 20 mg PO BID 01/28/16 [History] Lisinopril 20 mg [Zestril 20 MG] 20 mg PO DAILY 01/28/16 [History] PANTOPRAZOLE 40 mg Tablet [Protonix 40MG Tablet] 40 mg PO DAILY 01/28/16 [ History] Sitagliptin Phosphate [Januvia] 25 mg PO DAILY 01/28/16 [History] clonazePAM [Klonopin] 1 mg PO DAILY PRN PRN 01/28/16 [History] Empagliflozin [Jardiance] 10 mg PO DAILY 04/28/17 [History] Liraglutide [Victoza 2-Noel] 1.2 mg SQ DAILY 04/28/17 [History] Gabapentin 600 mg PO QID 11/21/17 [History] Hydrocodone/Acetaminophen [Hydrocodone-Acetamin 7.5-325] 1 tab PO DAILY [History] Insulin Degludec/Liraglutide [Xultophy 100 Unit-3.6MG/ml Pen] 4 units IM BIDWMEALS 11/21/17 [History] Hx Tetanus, Diphtheria Vaccination/Date Given: Yes Hx Influenza Vaccination/Date Given: Yes Hx Pneumococcal Vaccination/Date Given: Yes - Review of Systems Constitutional: No Fever, No Chills Eyes: No Symptoms Ears, Nose, & Throat: No Symptoms Respiratory: No Cough, No Dyspnea Cardiac: Chest Pain Abdominal/Gastrointestinal: No Abdominal Pain, No Nausea, No Vomiting, No Diarrhea Genitourinary Symptoms: No Dysuria Musculoskeletal: No Back Pain, No Neck Pain Skin: No Rash Neurological: No Dizziness, No Focal Weakness, No Sensory Changes Psychological: No Symptoms Endocrine: No Symptoms Hematologic/Lymphatic: No Symptoms Immunological/Allergic: No Symptoms All Other Systems: Reviewed and Negative - Past Medical History Pertinent Past Medical History: Yes Neurological History: Stroke, Other ENT History: Cataracts Cardiac History: Arrhythmia, Congestive Heart Failure, High Cholesterol, Hypertension, Myocardial Infarction ([place]) Respiratory History: Bronchitis, Pneumonia, Sleep Apnea Endocrine Medical History: Diabetes Type II Musculoskeletal History: No Pertinent History GI Medical History: GERD History: Renal Disease Psycho-Social History: Anxiety, Depression Male Reproductive Disorders: Prostate Problems Other Medical History: PT HAD A STROKE IN FEB 2012. [place] in Apr 2011. [place] in September in 2015. Open heart in May. cataract repair R eye , kidney failure in 2013 and 2015 - Past Surgical History Past Surgical History: Yes Neuro Surgical History: No Pertinent History Cardiac: CABG, Cardiac Catheterization Respiratory: No Pertinent History Gastrointestinal: No Pertinent History Genitourinary: No Pertinent History Musculoskeletal: Orthopedic Surgery Male Surgical History: No Pertinent History Other Surgical History: ACL REPLACED; CYST REMOVED IN LEFT ARM; CATARACT SURGERY IN 2010 - Social History Smoking Status: Former smoker Exposure to second hand smoke: No Alcohol Use: None Drug Use: none Patient Lives Alone: No Significant Family History: heart disease, diabetes, hypertension - Nursing Vital Signs Nursing Vital Signs: Initial Vital Signs Temperature 98.6 F 11/21/17 13:16 Pulse Rate 84 11/21/17 13:16 Respiratory Rate 16 11/21/17 13:16 Blood Pressure 119/82 11/21/17 13:16 O2 Sat by Pulse Oximetry 97 11/21/17 13:16 Pain Scale Pain Intensity 4 - Physical Exam General Appearance: no apparent distress, alert Eye Exam: PERRL/EOMI, eyes nml inspection Ears, Nose, Throat Exam: normal ENT inspection, moist mucous membranes Neck Exam: normal inspection, non-tender, supple, full range of motion Respiratory Exam: normal breath sounds, lungs clear, No respiratory distress Cardiovascular Exam: regular rate/rhythm, normal heart sounds Gastrointestinal/Abdomen Exam: soft, No tenderness, No mass Rectal Exam: not done Back Exam: normal inspection, No CVA tenderness, No vertebral tenderness Extremity Exam: normal inspection, normal range of motion Neurologic Exam: alert, oriented x 3, cooperative, normal mood/affect, sensation nml, No motor deficits Skin Exam: normal color, warm, dry SpO2 Interpretation: normal SpO2: 97 Oxygen Delivery: Room Air - Course EKG Interpreted by Me: RATE, Sinus Rhythm, NORMAL AXIS, NORMAL INTERVALS, NORMAL QRS, NORMAL ST-T, Other (no change to EKG 04/28/17.) - Radiology Exams Chest X-ray Interpretation: Reviewed by me, Teleradiologist Report (per Dr Still), Negative Ordered Tests: Active Orders 24 hr Category Date Time Status Joint Supervisor STAT Care 11/21/17 13:46 Active Clean Catch Urine Specimen STAT Care 11/21/17 13:46 Active EKG-ER Only STAT Care 11/21/17 13:46 Active IV Insertion STAT Care 11/21/17 13:46 Active Pulse Oximetry (ED) STAT Care 11/21/17 13:46 Active CHEST 2 VIEWS (PA AND LAT) Stat Exams 11/21/17 13:46 Completed CBC W DIFF Stat Lab 11/21/17 13:45 Completed CMP Stat Lab 11/21/17 13:45 Completed NT PRO BNP Stat Lab 11/21/17 13:45 Completed TROPONIN Q3H Lab 11/21/17 13:45 Completed TROPONIN Q3H Lab 11/21/17 17:00 Ordered TROPONIN Q3H Lab 11/21/17 20:00 Ordered TROPONIN Q3H Lab 11/21/17 23:00 Ordered TROPONIN Q3H Lab 11/22/17 02:00 Ordered Urine Triage Profile Stat Lab 11/21/17 15:26 Completed Medication Summary Discontinued Medications Generic Name Dose Route Start Last Admin Trade Name Freq PRN Reason Stop Dose Admin Acetaminophen 1,000 mg 11/21/17 16:24 11/21/17 16:32 Tylenol Extra Strength 500 Mg PO 11/21/17 16:25 Not Given STAT STA Acetaminophen Confirm 11/21/17 16:29 Tylenol Extra Strength 500 Mg Administered 11/21/17 16:30 Dose 1,000 mg .ROUTE .STK-MED ONE Al Hydrox/Mg Hydrox/Simethicone Confirm 11/21/17 15:06 Maalox Es 30 Ml Unit Dose Administered 11/21/17 15:07 Dose 30 ml .ROUTE .STK-MED ONE Aspirin 324 mg 11/21/17 13:46 11/21/17 13:52 Baby Aspirin 81 Mg Chew PO 11/21/17 13:47 324 mg STAT ONE Administration Aspirin Confirm 11/21/17 13:50 Baby Aspirin 81 Mg Chew Administered 11/21/17 13:51 Dose 324 mg .ROUTE .STK-MED ONE Famotidine 20 mg 11/21/17 13:46 11/21/17 13:52 Pepcid 20 Mg Vial IV 11/21/17 13:47 20 mg STAT ONE Administration Famotidine Confirm 11/21/17 13:50 Pepcid 20 Mg Vial Administered 11/21/17 13:51 Dose 20 mg IV .STK-MED ONE Ketorolac Tromethamine 30 mg 11/21/17 15:42 11/21/17 15:45 Toradol 30 Mg Injection IV 11/21/17 15:43 30 mg STAT ONE Administration Ketorolac Tromethamine Confirm 11/21/17 15:45 Toradol 30 Mg Injection Administered 11/21/17 15:46 Dose 30 mg .ROUTE .STK-MED ONE Lidocaine HCl Confirm 11/21/17 15:06 Xylocaine Hcl Viscous * Administered 11/21/17 15:07 Dose 15 ml .ROUTE .STK-MED ONE Magnesium Hydroxide 45 ml 11/21/17 14:58 11/21/17 15:09 Gi Cocktail 45 Ml (Maalox/Lidocaine) PO 11/21/17 14:59 45 ml STAT ONE Administration Nitroglycerin 0.4 mg 11/21/17 13:46 11/21/17 13:52 Nitrostat 0.4 Mg (Ed) SL 11/21/17 13:47 0.4 mg STAT ONE Administration Nitroglycerin Confirm 11/21/17 13:50 Nitrostat 0.4 Mg (Ed) Administered 11/21/17 13:51 Dose 0.4 mg SL .STK-MED ONE Ondansetron HCl 4 mg 11/21/17 13:46 11/21/17 13:52 Zofran 4 Mg/2 Ml Vial IV 11/21/17 13:47 4 mg STAT ONE Administration Ondansetron HCl Confirm 11/21/17 13:50 Zofran 4 Mg/2 Ml Vial Administered 11/21/17 13:51 Dose 4 mg .ROUTE .STK-MED ONE Promethazine HCl 25 mg 11/21/17 14:37 11/21/17 14:41 Phenergan 25 Mg Inj IV 11/21/17 14:38 25 mg STAT ONE Administration Promethazine HCl Confirm 11/21/17 14:41 Phenergan 25 Mg Inj Administered 11/21/17 14:42 Dose 25 mg .ROUTE .STK-MED ONE Lab/Rad Data: Laboratory Result Diagrams 11/21/17 13:45 11/21/17 13:45 Laboratory Results 11/21/17 11/21/17 11/21/17 Range/Units 15:26 13:45 13:45 WBC (4.0-10.5) K/mm3 RBC (4.1-5.6) M/mm3 Hgb (12.5-18.0) gm/dl Hct (42-50) % MCV (78-100) fl MCH (26-32) pg MCHC (32-36) g/dl RDW (11.5-14.0) % Plt Count (150-450) K/mm3 MPV (6-9.5) fl Gran % (36.0-66.0) % Eos # (Auto) (0-0.5) Absolute Lymphs (auto) (1.0-4.6) Absolute Monos (auto) (0.0-1.3) Lymphocytes % (24.0-44.0) % Monocytes % (0.0-12.0) % Eosinophils % (0.00-5.0) % Basophils % (0.0-0.4) % Absolute Granulocytes (1.4-6.9) Basophils # (0-0.4) Sodium 137 (137-145) mmol/L Potassium 4.3 (3.5-5.1) mmol/L Chloride 99 (98-107) mmol/L Carbon Dioxide 27 (22-30) mmol/L Anion Gap 14.6 (5-15) MEQ/L BUN 15 (9-20) mg/dL Creatinine 0.70 (0.66-1.25) mg/dL Estimated GFR > 60.0 ML/MIN Glucose 94 (74-106) mg/dL Calcium 9.2 (8.4-10.2) mg/dL Total Bilirubin 0.60 (0.2-1.3) mg/dL AST 31 (17-59) U/L ALT 47 (0-50) U/L Alkaline Phosphatase 113 (38-126) U/L Troponin I < 0.012 (0.000-0.034) ng/mL NT-Pro-B Natriuret Pep 35.2 (0-450) pg/mL Serum Total Protein 7.4 (6.3-8.2) g/dL Albumin 4.4 (3.5-5.0) g/dL Urine Opiates Level POSITIVE (NEGATIVE) Ur Methadone NEGATIVE (NEGATIVE) Urine Barbiturates NEGATIVE (NEGATIVE) Ur Phencyclidine (PCP) NEGATIVE (NEGATIVE) Urine Amphetamine NEGATIVE (NEGATIVE) U Benzodiazepine Level POSITIVE (NEGATIVE) Urine Cocaine NEGATIVE (NEGATIVE) Urine Marijuana (THC) NEGATIVE (NEGATIVE) 11/21/17 Range/Units 13:45 WBC 9.9 (4.0-10.5) K/mm3 RBC 5.67 H (4.1-5.6) M/mm3 Hgb 15.2 (12.5-18.0) gm/dl Hct 47.8 (42-50) % MCV 84.3 (78-100) fl MCH 26.8 (26-32) pg MCHC 31.8 L (32-36) g/dl RDW 15.3 H (11.5-14.0) % Plt Count 293 (150-450) K/mm3 MPV 9.9 H (6-9.5) fl Gran % 53.3 (36.0-66.0) % Eos # (Auto) 0.09 (0-0.5) Absolute Lymphs (auto) 3.72 (1.0-4.6) Absolute Monos (auto) 0.77 (0.0-1.3) Lymphocytes % 37.7 (24.0-44.0) % Monocytes % 7.8 (0.0-12.0) % Eosinophils % 0.9 (0.00-5.0) % Basophils % 0.3 (0.0-0.4) % Absolute Granulocytes 5.25 (1.4-6.9) Basophils # 0.03 (0-0.4) Sodium (137-145) mmol/L Potassium (3.5-5.1) mmol/L Chloride (98-107) mmol/L Carbon Dioxide (22-30) mmol/L Anion Gap (5-15) MEQ/L BUN (9-20) mg/dL Creatinine (0.66-1.25) mg/dL Estimated GFR ML/MIN Glucose (74-106) mg/dL Calcium (8.4-10.2) mg/dL Total Bilirubin (0.2-1.3) mg/dL AST (17-59) U/L ALT (0-50) U/L Alkaline Phosphatase (38-126) U/L Troponin I (0.000-0.034) ng/mL NT-Pro-B Natriuret Pep (0-450) pg/mL Serum Total Protein (6.3-8.2) g/dL Albumin (3.5-5.0) g/dL Urine Opiates Level (NEGATIVE) Ur Methadone (NEGATIVE) Urine Barbiturates (NEGATIVE) Ur Phencyclidine (PCP) (NEGATIVE) Urine Amphetamine (NEGATIVE) U Benzodiazepine Level (NEGATIVE) Urine Cocaine (NEGATIVE) Urine Marijuana (THC) (NEGATIVE) - Progress Progress: improved Air Movement: good Progress Note: 11/21/17 16:29 Pt's chest pain resolved after the GI cocktail. 11/21/17 16:41 The patient has been requesting pain medicine frequently. The patient was initially given 4 baby aspirins to chew and a nitroglycerin. He was then given a GI cocktail which took his chest pain away completely. He then said he had total body aches. He was then given Toradol 30 mg IV. He states that it "didn' t touch my pain". I offered to give him Tylenol 1000 mg orally. The patient refused to take it because he said "it never helps me". He states that he takes hydrocodone's for his pain. He then for the first time told me he is in a pain management program. I offered to give him his usual dose of gabapentin. He became frustrated with me because I would not give him our cot it's. He told me he didn't want his gabapentin. He used some expletives in his conversation with me. He then declined to remain for 20 more minutes or the second troponin. He wants to leave AMA. I had discussed with him briefly that I would not get between him and his pain management doctor in terms of narcotics. Blood Culture(s) Obtained: No Antibiotics given: No - Departure Time of Disposition: 16:41 Departure Disposition: Home, INVERNESS Clinical Impression: Chest pain Condition: Stable Critical Care Time: No Referrals: DOCTOR,NO FAMILY [Primary Care Provider] -
[2017-11-21] MEDS ORDERED: Pepcid 20 MG VIAL IV ONE (13:50)
[2017-11-21] MEDS ORDERED: Nitrostat 0.4 MG (ED) SL ONE (13:50)
[2017-11-21] MEDS ORDERED: Zofran 4 MG/2 ML VIAL ONE (13:50)
[2017-11-21] MEDS ORDERED: BABY ASPIRIN 81 MG CHEW ONE (13:50)
[2017-11-21 13:52] LABS: BASOPHIL % 0.3 % (0.0-0.4); Basophil (Absolute #) 0.03 (0-0.4); Eosinophil % 0.9 % (0.00-5.0); Eosinophil (Absolute #) 0.09 (0-0.5); Granulocyte Absolute (ANC) 5.25 (1.4-6.9); Granulocytes % 53.3 % (36.0-66.0); Hematocrit 47.8 % (42-50); Hemoglobin 15.2 gm/dl (12.5-18.0); Lymphocyte (Absolute #) 3.72 (1.0-4.6); Lymphocytes % 37.7 % (24.0-44.0); Mean Cell Volume 84.3 fl (78-100); Mean Corpuscular Hemoglobin 26.8 pg (26-32); Mean Corpuscular Hgb Concent. 31.8 g/dl (32-36); Mean Platelet Volume 9.9 fl (6-9.5); Monocyte (Absolute #) 0.77 (0.0-1.3); Monocytes % 7.8 % (0.0-12.0); Platelet Count 293 K/mm3 (150-450); Red Blood Count 5.67 M/mm3 (4.1-5.6); Red Cell Distribution Width 15.3 % (11.5-14.0); White Blood Count 9.9 K/mm3 (4.0-10.5)
[2017-11-21] MEDS: Nitrostat 0.4 MG (ED) SL ONE (13:52)
[2017-11-21] MEDS: BABY ASPIRIN 81 MG CHEW PO ONE (13:52)
[2017-11-21] MEDS: Zofran 4 MG/2 ML VIAL IV ONE (13:52)
[2017-11-21] MEDS: Pepcid 20 MG VIAL IV ONE (13:52)
[2017-11-21 14:07] LABS: ALBUMIN 4.4 g/dL (3.5-5.0); ALKALINE PHOSPHATASE 113 U/L (38-126); ANION GAP 14.6 MEQ/L (5-15); BLOOD UREA NITROGEN 15 mg/dL (9-20); CHLORIDE 99 mmol/L (98-107); Calcium 9.2 mg/dL (8.4-10.2); Carbon Dioxide 27 mmol/L (22-30); Glucose 94 mg/dL (74-106); NT PRO BNP 35.2 pg/mL (0-450); Potassium 4.3 mmol/L (3.5-5.1); SGOT/AST 31 U/L (17-59); SGPT/ALT 47 U/L (0-50); SODIUM 137 mmol/L (137-145); Total Protein 7.4 g/dL (6.3-8.2)
--- NOTE | 2017-11-21 14:31 | XRAY ---
Indication: Chest pain. Comparison: April 28, 2017. PA/lateral chest again demonstrates normal heart, lungs, and bony thorax with incidental tiny calcified granulomas and sternotomy wires.
[2017-11-21] MEDS: Phenergan 25 MG INJ IV ONE (14:41)
[2017-11-21] MEDS ORDERED: Phenergan 25 MG INJ ONE (14:41)
[2017-11-21] MEDS ORDERED: XYLOCAINE HCl Viscous ONE (15:06)
[2017-11-21] MEDS ORDERED: MAALOX ES 30 ML UNIT DOSE ONE (15:06)
[2017-11-21] MEDS: GI COCKTAIL 45 ML (Maalox/Lidocaine) PO ONE (15:09)
[2017-11-21 15:35] LABS: Amphetamine,Urine NEGATIVE (NEGATIVE); Barbiturate,Urine NEGATIVE (NEGATIVE); Benzodiazepine,Urine POSITIVE (NEGATIVE); Cocaine,Urine NEGATIVE (NEGATIVE); Methadone,Urine NEGATIVE (NEGATIVE); Opiate,Urine POSITIVE (NEGATIVE); PCP,Urine NEGATIVE (NEGATIVE); THC,Urine NEGATIVE (NEGATIVE)
[2017-11-21] MEDS: TORAdol 30 mg Injection IV ONE (15:45)
[2017-11-21] MEDS ORDERED: TORAdol 30 mg Injection ONE (15:45)
[2017-11-21 16:07] VITALS: BP 106/75; PULSE 82
[2017-11-21] MEDS ORDERED: TYLENOL EXTRA STRENGTH 500 MG ONE (16:29)
[2017-11-21 16:30] VITALS: O2SAT 97
[2017-11-21] MEDS: TYLENOL EXTRA STRENGTH 500 MG PO STA (16:32)
== END 2017-11-21 16:55 | disposition left against medical advice (07) ==
LOC: ED 13:14
DX: R07.9 Chest pain, unspecified (principal); Z79.899 Other long term (current) drug therapy; E11.9 Type 2 diabetes mellitus without complications; Z79.4 Long term (current) use of insulin
CPT/HCPCS: 36000; 36415; 71046; 80053; 80307; 83880; 84484; 85025; 93005; 93041; 96374; 96375; 99285; J1885; J2405; J2550; A9270-GY

== ENCOUNTER 2018-01-20 23:45 | Observation (INO) | payer MEDICARE ==
--- NOTE | 2018-01-21 00:43 | ERPHSYRPT ---
- History of Present Illness Time Seen by Provider: 01/21/18 00:15 Source: patient Exam Limitations: clinical condition Patient Subjective Stated Complaint: swelling in feet, hx of CHF, kidney failure , and Diabetes, hasn't been urinating much, hx of MRSA under right arm pit and states that if you push on it now that green "goop" will come out Triage Nursing Assessment: Pt c/o of swelling in feet, hx of CHF, kidney failure , and Diabetes, hasn't been urinating much, hx of MRSA under right arm pit and states that if you push on it now that green "goop" will come out, right foot is swollen, red and painful, cracks on heal of foot, states that his feet feel like they are on fire, has neuropathy, only urinated 2 times today with a volume of less than 1/2 a cup per time, right lower abdomen painful with palpitation, stated that both kidneys hurt when he is stands to urinate Physician History: PATIENT WITH A HISTORY OF TYPE 1 DIABETES, CVA, HTN, CORONARY ARTERY DISEASE, MYOCARDIAL INFARCTION 04/2011, AND 2015. COMPLAINS OF BILATERAL FOOT SWELLING WITH REDNESS RIGHT LEG SWELLING OVER THE PAST 4 DAYS. DENIES, FEVER, CHILLS DYSPNEA, COUGH OR CHEST PAIN Method of Injury: other (DENIES INJURY) Occurred: days ago Quality: constant, throbbing Severity of Pain-Max: moderate Severity of Pain-Current: moderate Lower Extremities Pain: foot: bilateral Modifying Factors: Improves With: movement Associated Symptoms: other (PAIN WITH REDNESS IN FEET AND SHINS) Allergies/Adverse Reactions: hydroxyzine HCl [From Atarax] Adverse Reaction (Verified 01/21/18 00:09) Swelling affected kidney functions metformin Adverse Reaction (Verified 01/21/18 00:09) Home Medications: Furosemide 20 mg [Lasix 20 mg] 20 mg PO BID 01/28/16 [History] Lisinopril 20 mg [Zestril 20 MG] 20 mg PO DAILY 01/28/16 [History] PANTOPRAZOLE 40 mg Tablet [Protonix 40MG Tablet] 40 mg PO DAILY 01/28/16 [ History] Sitagliptin Phosphate [Januvia] 25 mg PO DAILY 01/28/16 [History] Empagliflozin [Jardiance] 10 mg PO DAILY 04/28/17 [History] Liraglutide [Victoza 2-Noel] 1.2 mg SQ DAILY 04/28/17 [History] Gabapentin 600 mg PO QID 11/21/17 [History] Insulin Degludec/Liraglutide [Xultophy 100 Unit-3.6MG/ml Pen] 4 units IM DAILY 11/21/17 [History] Alprazolam 0.5 mg [xanAX 0.5 MG] 0.5 mg PO DAILY 01/21/18 [History] Atorvastatin Calcium [Lipitor] 40 mg PO HS 01/21/18 [History] Hydrocodone/Acetaminophen [Hydrocodone-Acetamin 10-325 mg] 1 tab PO TID [History] Hx Tetanus, Diphtheria Vaccination/Date Given: Yes Hx Influenza Vaccination/Date Given: Yes Hx Pneumococcal Vaccination/Date Given: Yes - Review of Systems Constitutional: No Fever, No Chills Eyes: No Symptoms Ears, Nose, & Throat: No Symptoms Respiratory: No Symptoms, No Cough, No Dyspnea Cardiac: No Symptoms, No Chest Pain, No Edema, No Syncope Abdominal/Gastrointestinal: No Symptoms, No Abdominal Pain, No Nausea, No Vomiting, No Diarrhea Genitourinary Symptoms: Incontinence, No Dysuria Musculoskeletal: Joint Pain, Joint Swelling, Other (LOWER EXTREMITY REDNESS, SWELLING), No Back Pain, No Neck Pain Skin: No Rash Neurological: No Dizziness, No Focal Weakness, No Sensory Changes Psychological: No Symptoms Endocrine: No Symptoms All Other Systems: Reviewed and Negative - Past Medical History Pertinent Past Medical History: Yes Neurological History: Stroke, Other ENT History: Cataracts Cardiac History: Arrhythmia, Congestive Heart Failure, High Cholesterol, Hypertension, Myocardial Infarction ([place]) Respiratory History: Bronchitis, Pneumonia, Sleep Apnea Endocrine Medical History: Diabetes Type II Musculoskeletal History: No Pertinent History GI Medical History: GERD History: Renal Disease Psycho-Social History: Anxiety, Depression Male Reproductive Disorders: Prostate Problems Other Medical History: PT HAD A STROKE IN FEB 2012. [place] in Apr 2011. [place] in September in 2015. Open heart in May. cataract repair R eye , kidney failure in 2013 and 2015 - Past Surgical History Past Surgical History: Yes Neuro Surgical History: No Pertinent History Cardiac: CABG, Cardiac Catheterization Respiratory: No Pertinent History Gastrointestinal: No Pertinent History Genitourinary: No Pertinent History Musculoskeletal: Orthopedic Surgery Male Surgical History: No Pertinent History Other Surgical History: ACL REPLACED; CYST REMOVED IN LEFT ARM; CATARACT SURGERY IN 2011 - Social History Smoking Status: Current every day smoker How long have you smoked: 16 years Exposure to second hand smoke: No Alcohol Use: None Drug Use: none Patient Lives Alone: No Significant Family History: heart disease, diabetes, hypertension - Nursing Vital Signs Nursing Vital Signs: Initial Vital Signs Temperature 97.5 F 01/20/18 23:51 Pulse Rate 99 H 01/20/18 23:51 Respiratory Rate 16 01/20/18 23:51 Blood Pressure 125/83 01/20/18 23:51 O2 Sat by Pulse Oximetry 100 01/20/18 23:51 Pain Scale Pain Intensity 7 - Physical Exam General Appearance: alert Eyes, Ears, Nose, Throat Exam: moist mucous membranes Neck Exam: non-tender, supple Cardiovascular/Respiratory Exam: chest non-tender, normal breath sounds, regular rate/rhythm, no respiratory distress Gastrointestinal/Abdominal Exam: non-tender, guarding Back Exam: normal inspection, No vertebral tenderness Legs Exam: bilateral leg: pain (BILAT CALF TENDERNESS), soft tissue tenderness, swelling (ERYTHEMA BILAT FOOT TO MID SHINS, PEDIS PULSES 2+) Foot Exam: bilateral foot: soft tissue tenderness, swelling (RIGHT FOOT GREATER THAN LEFT, MODERATE RIGHT FOOT SWELLING), other (PEDIS PULSE 2+) Neuro/Tendon Exam: normal sensation, normal motor functions Mental Status Exam: alert, oriented x 3, cooperative Skin Exam: normal color, warm, dry SpO2: 100 Oxygen Delivery: Room Air - Radiology Ultrasound Exam Venous Lower Extremity Ultrasound: discussed w/radiologist (BILAT LOWER VENOUS DOPPLER NEGATIVE OF DVT) Ordered Tests: Active Orders 24 hr Category Date Time Status IV Insertion STAT Care 01/21/18 00:32 Active VENOUS BILATERAL EXTREMITY [US] Stat Exams 01/21/18 01:52 Taken BLOOD CULTURE Stat Lab 01/21/18 02:15 Received CBC W DIFF Stat Lab 01/21/18 02:15 Completed CMP Stat Lab 01/21/18 02:15 Completed MAGNESIUM Stat Lab 01/21/18 02:15 Completed PROTIME WITH INR Stat Lab 01/21/18 02:15 Completed UA W/RFX UR CULTURE Stat Lab 01/21/18 01:14 Uncollected Medication Summary Generic Name Dose Route Start Last Admin Trade Name Freq PRN Reason Stop Dose Admin Sodium Chloride 1,000 mls @ 50 mls/hr 01/21/18 00:45 01/21/18 01:05 Sodium Chloride 0.9% 1000 Ml IV 02/20/18 00:44 50 mls/hr .Q20H ABHISHEK Administration Discontinued Medications Generic Name Dose Route Start Last Admin Trade Name Shahriarq PRN Reason Stop Dose Admin Hydrocodone Bitart/Acetaminophen 1 tab 01/21/18 01:12 01/21/18 02:00 [place] 10/325 Mg Tablet PO 01/21/18 01:13 1 tab STAT ONE Administration Hydrocodone Bitart/Acetaminophen Confirm 01/21/18 01:20 [place] 10/325 Mg Tablet Administered 01/21/18 01:21 Dose 1 tab .ROUTE .STK-MED ONE Piperacillin Sod/Tazobactam 100 mls @ 100 mls/hr 01/21/18 01:19 01/21/18 02: 00 Sod 4.5 gm/ Dextrose IV 01/21/18 02:18 100 mls/hr STAT ONE Administration Dextrose Confirm 01/21/18 01:22 D5w 100ml Mini Bag 100 Ml Administered 01/21/18 01:23 Dose 100 mls @ ud IV .STK-MED ONE Piperacillin Sod/Tazobactam Sod Confirm 01/21/18 01:21 Zosyn Inj Administered 01/21/18 01:22 Dose 4.5 gm IV .STK-MED ONE Lab/Rad Data: Laboratory Result Diagrams 01/21/18 02:15 01/21/18 02:15 Laboratory Results 01/21/18 01/21/18 01/21/18 Range/Units 02:15 02:15 02:15 WBC (4.0-10.5) K/mm3 RBC (4.1-5.6) M/mm3 Hgb (12.5-18.0) gm/dl Hct (42-50) % MCV (78-100) fl MCH (26-32) pg MCHC (32-36) g/dl RDW (11.5-14.0) % Plt Count (150-450) K/mm3 MPV (6-9.5) fl Gran % (36.0-66.0) % Eos # (Auto) (0-0.5) Absolute Lymphs (auto) (1.0-4.6) Absolute Monos (auto) (0.0-1.3) Lymphocytes % (24.0-44.0) % Monocytes % (0.0-12.0) % Eosinophils % (0.00-5.0) % Basophils % (0.0-0.4) % Absolute Granulocytes (1.4-6.9) Basophils # (0-0.4) PT 14.0 H (8.83-12.87) SECONDS INR 1.20 (0.8-3.0) Sodium 136 L (137-145) mmol/L Potassium 4.0 (3.5-5.1) mmol/L Chloride 101 (98-107) mmol/L Carbon Dioxide 28 (22-30) mmol/L Anion Gap 10.8 (5-15) MEQ/L BUN 19 (9-20) mg/dL Creatinine 0.71 (0.66-1.25) mg/dL Estimated GFR > 60.0 ML/MIN Glucose 152 H (74-106) mg/dL Calcium 9.1 (8.4-10.2) mg/dL Magnesium 2.0 (1.6-2.3) mg/dL Total Bilirubin 0.30 (0.2-1.3) mg/dL AST 26 (17-59) U/L ALT 30 (0-50) U/L Alkaline Phosphatase 106 (38-126) U/L Serum Total Protein 6.8 (6.3-8.2) g/dL Albumin 3.9 (3.5-5.0) g/dL 01/21/18 Range/Units 02:15 WBC 8.6 (4.0-10.5) K/mm3 RBC 5.26 (4.1-5.6) M/mm3 Hgb 14.5 (12.5-18.0) gm/dl Hct 44.7 (42-50) % MCV 85.0 (78-100) fl MCH 27.6 (26-32) pg MCHC 32.4 (32-36) g/dl RDW 15.2 H (11.5-14.0) % Plt Count 295 (150-450) K/mm3 MPV 9.5 (6-9.5) fl Gran % 54.3 (36.0-66.0) % Eos # (Auto) 0.12 (0-0.5) Absolute Lymphs (auto) 3.13 (1.0-4.6) Absolute Monos (auto) 0.64 (0.0-1.3) Lymphocytes % 36.5 (24.0-44.0) % Monocytes % 7.5 (0.0-12.0) % Eosinophils % 1.4 (0.00-5.0) % Basophils % 0.3 (0.0-0.4) % Absolute Granulocytes 4.66 (1.4-6.9) Basophils # 0.03 (0-0.4) PT (8.83-12.87) SECONDS INR (0.8-3.0) Sodium (137-145) mmol/L Potassium (3.5-5.1) mmol/L Chloride (98-107) mmol/L Carbon Dioxide (22-30) mmol/L Anion Gap (5-15) MEQ/L BUN (9-20) mg/dL Creatinine (0.66-1.25) mg/dL Estimated GFR ML/MIN Glucose (74-106) mg/dL Calcium (8.4-10.2) mg/dL Magnesium (1.6-2.3) mg/dL Total Bilirubin (0.2-1.3) mg/dL AST (17-59) U/L ALT (0-50) U/L Alkaline Phosphatase (38-126) U/L Serum Total Protein (6.3-8.2) g/dL Albumin (3.5-5.0) g/dL - Progress Progress: pain not gone completely Progress Note: 01/21/18 02:04 IV NORMAL SALINE 50ML/HR, AFTER 2 SETS OF BLOOD CULTURES, ADMINISTERED ZOSYN 4.5GM IVPB Discussed with Dr.: Other (DISCUSSED WITH DR Berta RANGEL AT [address] BOWEN FOR OBSERVATION) - Departure Time of Disposition: 03:15 Departure Disposition: Observation Clinical Impression: BILATERAL LOWER EXTREMITY CELLULITIS Condition: Stable Critical Care Time: No Referrals: BRANDO BOWLING [Primary Care Provider] -
[2018-01-21] MEDS: Sodium Chloride 0.9% 1000 ML 1,000 ML IV SCH ×2 (01:05→21:24)
[2018-01-21] MEDS ORDERED: Norco 10/325 MG Tablet PO ONE (01:12)
[2018-01-21] MEDS ORDERED: Zosyn INJ 4.5 GM in D5w 100ML Mini Bag 100 ML 100 ML IV ONE (01:19)
[2018-01-21] MEDS ORDERED: Norco 10/325 MG Tablet ONE (01:20)
[2018-01-21] MEDS ORDERED: Zosyn INJ IV ONE (01:21)
[2018-01-21] MEDS ORDERED: D5w 100ML Mini Bag 100 ML 100 ML IV ONE (01:22)
[2018-01-21 02:34] LABS: BASOPHIL % 0.3 % (0.0-0.4); Basophil (Absolute #) 0.03 (0-0.4); Eosinophil % 1.4 % (0.00-5.0); Eosinophil (Absolute #) 0.12 (0-0.5); Granulocyte Absolute (ANC) 4.66 (1.4-6.9); Granulocytes % 54.3 % (36.0-66.0); Hematocrit 44.7 % (42-50); Hemoglobin 14.5 gm/dl (12.5-18.0); Lymphocyte (Absolute #) 3.13 (1.0-4.6); Lymphocytes % 36.5 % (24.0-44.0); Mean Corpuscular Hemoglobin 27.6 pg (26-32); Mean Corpuscular Hgb Concent. 32.4 g/dl (32-36); Mean Platelet Volume 9.5 fl (6-9.5); Monocyte (Absolute #) 0.64 (0.0-1.3); Monocytes % 7.5 % (0.0-12.0); Platelet Count 295 K/mm3 (150-450); Red Blood Count 5.26 M/mm3 (4.1-5.6); Red Cell Distribution Width 15.2 % (11.5-14.0); White Blood Count 8.6 K/mm3 (4.0-10.5)
[2018-01-21 02:42] LABS: INR 1.2 (0.8-3.0)
[2018-01-21 02:47] LABS: ALBUMIN 3.9 g/dL (3.5-5.0); ALKALINE PHOSPHATASE 106 U/L (38-126); ANION GAP 10.8 MEQ/L (5-15); BLOOD UREA NITROGEN 19 mg/dL (9-20); CHLORIDE 101 mmol/L (98-107); Calcium 9.1 mg/dL (8.4-10.2); Carbon Dioxide 28 mmol/L (22-30); Creatinine 1 0.71 mg/dL (0.66-1.25); Glucose 152 mg/dL (74-106); SGOT/AST 26 U/L (17-59); SGPT/ALT 30 U/L (0-50); SODIUM 136 mmol/L (137-145); Total Protein 6.8 g/dL (6.3-8.2)
[2018-01-21] MEDS ORDERED: TYLENOL 325 MG PO PRN (03:12)
[2018-01-21] MEDS ORDERED: PROVENTIL 2.5 MG/3 ML NEB IH PRN (03:12)
[2018-01-21] MEDS ORDERED: Zofran 4 MG/2 ML VIAL IV PRN (03:12)
[2018-01-21] MEDS ORDERED: NovoLOG Insulin SQ PRN (03:26)
[2018-01-21 04:36] LABS: Appearance CLEAR (CLEAR); Bilirubin NEGATIVE (NEGATIVE); Blood NEGATIVE Ery/ul (0-5); Glucose NEGATIVE (NEGATIVE); Ketones NEGATIVE (NEGATIVE); Leukocyte Esterase NEGATIVE (NEGATIVE); Nitrite NEGATIVE (NEGATIVE); Protein,Urine Dip NEGATIVE (Negative); Specific Gravity 1.024 (1.005-1.025); Urobilinogen 2 mg/dL (0-1)
[2018-01-21] MEDS: Zosyn 3.375GM/100 Ml D5W 3.375 GM/100 ML IVPB IV SCH ×4 (05:29→23:29)
--- NOTE | 2018-01-21 07:31 | XRAY ---
Indication: Bilateral leg edema and erythema. Two-dimensional sonogram and color Doppler imaging of the major venous vessels of the left and right leg was performed. Comparison: None No thrombus seen in the examined deep venous vessels of the left and right leg including greater saphenous veins. Veins demonstrate normal compressibility. Venous waveforms are normal with and without augmentation. Impression: Left and right legs negative for DVT. Comment: Preliminary report was given.
[2018-01-21] MEDS ORDERED: TYLENOL EXTRA STRENGTH 500 MG PO PRN (07:54)
--- NOTE | 2018-01-21 09:02 | PCM.HP ---
History of Present Illness - Chief Complaint Chief Complaint: Bilateral Lower Extremity swelling for 3-4 days History of Present Illness: is a 37 year old male.Patient with long history of hypertension, diabetes, coronary artery disease, morbid obesity, who is primary care physician is Dr Martinez, came to the ER at [facility] with complaining of swelling in the both lower extremities. For last 3 -4 days. Patient denies any fever, chills, nausea, vomiting, or active bleeding. Patient has history of MRSA in the past. - Review of Systems Constitutional: No Fever, No Chills Eyes: No Symptoms Ears, Nose, & Throat: No Symptoms Respiratory: No Cough, No Short Of Breath Cardiac: No Chest Pain, No Edema, No Syncope Abdominal/Gastrointestinal: No Abdominal Pain, No Nausea, No Vomiting, No Diarrhea Genitourinary Symptoms: No Dysuria Musculoskeletal: No Back Pain, No Neck Pain Skin: Cellulitis (both lower extrimities), No Rash Neurological: No Dizziness, No Focal Weakness, No Sensory Changes Psychological: No Symptoms Endocrine: No Symptoms Hematologic/Lymphatic: No Symptoms Immunological/Allergic: No Symptoms Medications & Allergies Home Medications: Home Medication List Furosemide 20 mg [Lasix 20 mg] 20 mg PO BID 01/28/16 [History Confirmed ] Lisinopril 20 mg [Zestril 20 MG] 20 mg PO DAILY 01/28/16 [History Confirmed 01/21/18] PANTOPRAZOLE 40 mg Tablet [Protonix 40MG Tablet] 40 mg PO DAILY 01/28/16 [ History Confirmed 01/21/18] Sitagliptin Phosphate [Januvia] 25 mg PO DAILY 01/28/16 [History Confirmed 01/21] Albuterol Common Canister [Proventil Common Canister] 2 puff IH Q4-6HPRN PRN #1 puff 07/25/16 [Rx Confirmed 01/21/18] Empagliflozin [Jardiance] 10 mg PO DAILY 04/28/17 [History Confirmed 01/21/18] Liraglutide [Victoza 2-Noel] 1.2 mg SQ DAILY 04/28/17 [History Confirmed 01/21/18 ] Gabapentin 600 mg PO QID 11/21/17 [History Confirmed 01/21/18] Insulin Degludec/Liraglutide [Xultophy 100 Unit-3.6MG/ml Pen] 4 units IM DAILY 11/21/17 [History Confirmed 01/21/18] Alprazolam 0.5 mg [xanAX 0.5 MG] 0.5 mg PO DAILY 01/21/18 [History Confirmed 01/21/18] Atorvastatin Calcium [Lipitor] 40 mg PO HS 01/21/18 [History Confirmed 01/21/18] Hydrocodone/Acetaminophen [Hydrocodone-Acetamin 10-325 mg] 1 tab PO TID [History Confirmed 01/21/18] Allergies/Adverse Reactions: Allergies Allergy/AdvReac Type Severity Reaction Status Date / Time hydroxyzine HCl [From Atarax] AdvReac Swelling Verified 01/21/18 00:09 metformin AdvReac Verified 01/21/18 00:09 - Past Medical History Past Medical History: Yes Neurological History: Stroke, Other ENT History: Cataracts Cardiac History: Arrhythmia, Congestive Heart Failure, High Cholesterol, Hypertension, Myocardial Infarction ([place]) Respiratory History: Bronchitis, Pneumonia, Sleep Apnea Endocrine Medical History: Diabetes Type II Musculoskelatal History: No Pertinent History GI Medical History: GERD History: Renal Disease Pyscho-Social History: Anxiety, Depression Male Reproductive Disorders: Prostate Problems Comment: PT HAD A STROKE IN FEB 2012. [place] in Apr 2011. [place] in September in 2015. Open heart in May. cataract repair R eye , kidney failure in 2013 and 2015 - Past Surgical History Past Surgical History: Yes Neuro Surgical History: No Pertinent History Cardiac History: CABG, Cardiac Catheterization Respiratory Surgery: No Pertinent History GI Surgical History: No Pertinent History Genitourinary Surgical Hx: No Pertinent History Musculskeletal Surgical Hx: Orthopedic Surgery Male Surgical History: No Pertinent History Other Surgical History: ACL REPLACED; CYST REMOVED IN LEFT ARM; CATARACT SURGERY IN 2010 - Social History Smoking Status: Current every day smoker How long have you smoked: 16 years Exposure to second hand smoke: No Alcohol: None Drug Use: none Significant Family History: heart disease, diabetes, hypertension - Physical Exam Vital Signs: Vital Signs - 24 hr Temp Pulse Resp BP Pulse Ox 01/21/18 06:50 97.8 F 84 20 111/77 97 01/21/18 04:41 97.6 F 81 18 111/77 98 01/21/18 03:10 100 01/21/18 03:08 97.5 F 87 110/80 96 01/20/18 23:51 97.5 F 99 H 16 125/83 100 General Appearance: no apparent distress, alert Neurologic Exam: alert, oriented x 3, cooperative, normal mood/affect, nml cerebellar function, nml station & gait, sensation nml, No motor deficits Eye Exam: PERRL/EOMI, eyes nml inspection Ears, Nose, Throat Exam: normal ENT inspection, TMs normal, pharynx normal, moist mucous membranes Neck Exam: normal inspection, non-tender, supple, full range of motion Respiratory Exam: normal breath sounds, lungs clear, No respiratory distress Cardiovascular Exam: regular rate/rhythm, normal heart sounds, normal peripheral pulses Gastrointestinal/Abdomen Exam: soft, normal bowel sounds, No tenderness, No mass Back Exam: normal inspection, normal range of motion, No CVA tenderness, No vertebral tenderness Extremity Exam: inflammation, pedal edema, No shelbie's sign Skin Exam: normal color, warm, dry, No rash Lymphatic Exam: No adenopathy Results - Labs Lab/Micro Results: Accuchecks Date 01/21/18 Time 07:30 Accucheck Value: 133 Lab Results-Last 24 Hours 01/21/18 01/21/18 01/21/18 Range/Units 02:15 02:15 02:15 WBC 8.6 (4.0-10.5) K/mm3 RBC 5.26 (4.1-5.6) M/mm3 Hgb 14.5 (12.5-18.0) gm/dl Hct 44.7 (42-50) % MCV 85.0 (78-100) fl MCH 27.6 (26-32) pg MCHC 32.4 (32-36) g/dl RDW 15.2 H (11.5-14.0) % Plt Count 295 (150-450) K/mm3 MPV 9.5 (6-9.5) fl Gran % 54.3 (36.0-66.0) % Eos # (Auto) 0.12 (0-0.5) Absolute Lymphs (auto) 3.13 (1.0-4.6) Absolute Monos (auto) 0.64 (0.0-1.3) Lymphocytes % 36.5 (24.0-44.0) % Monocytes % 7.5 (0.0-12.0) % Eosinophils % 1.4 (0.00-5.0) % Basophils % 0.3 (0.0-0.4) % Absolute Granulocytes 4.66 (1.4-6.9) Basophils # 0.03 (0-0.4) PT (8.83-12.87) SECONDS INR (0.8-3.0) Sodium 136 L (137-145) mmol/L Potassium 4.0 (3.5-5.1) mmol/L Chloride 101 (98-107) mmol/L Carbon Dioxide 28 (22-30) mmol/L Anion Gap 10.8 (5-15) MEQ/L BUN 19 (9-20) mg/dL Creatinine 0.71 (0.66-1.25) mg/dL Estimated GFR > 60.0 ML/MIN Glucose 152 H (74-106) mg/dL Calcium 9.1 (8.4-10.2) mg/dL Magnesium 2.0 (1.6-2.3) mg/dL Total Bilirubin 0.30 (0.2-1.3) mg/dL AST 26 (17-59) U/L ALT 30 (0-50) U/L Alkaline Phosphatase 106 (38-126) U/L Serum Total Protein 6.8 (6.3-8.2) g/dL Albumin 3.9 (3.5-5.0) g/dL Urine Color (YELLOW) Urine Appearance (CLEAR) Urine pH (5-6) Ur Specific [place] (1.005-1.025) Urine Protein (Negative) Urine Ketones (NEGATIVE) Urine Blood (0-5) Mendez/ul Urine Nitrite (NEGATIVE) Urine Bilirubin (NEGATIVE) Urine Urobilinogen (0-1) mg/dL Ur Leukocyte Esterase (NEGATIVE) Urine RBC (Auto) (0-2) /HPF U Epithel Cells (Auto) (FEW) /HPF Urine Mucus (Auto) (NEGATIVE) /HPF Urine Culture Reflexed (NO) Urine Glucose (NEGATIVE) mg/dL 01/21/18 01/21/18 Range/Units 02:15 04:00 WBC (4.0-10.5) K/mm3 RBC (4.1-5.6) M/mm3 Hgb (12.5-18.0) gm/dl Hct (42-50) % MCV (78-100) fl MCH (26-32) pg MCHC (32-36) g/dl RDW (11.5-14.0) % Plt Count (150-450) K/mm3 MPV (6-9.5) fl Gran % (36.0-66.0) % Eos # (Auto) (0-0.5) Absolute Lymphs (auto) (1.0-4.6) Absolute Monos (auto) (0.0-1.3) Lymphocytes % (24.0-44.0) % Monocytes % (0.0-12.0) % Eosinophils % (0.00-5.0) % Basophils % (0.0-0.4) % Absolute Granulocytes (1.4-6.9) Basophils # (0-0.4) PT 14.0 H (8.83-12.87) SECONDS INR 1.20 (0.8-3.0) Sodium (137-145) mmol/L Potassium (3.5-5.1) mmol/L Chloride (98-107) mmol/L Carbon Dioxide (22-30) mmol/L Anion Gap (5-15) MEQ/L BUN (9-20) mg/dL Creatinine (0.66-1.25) mg/dL Estimated GFR ML/MIN Glucose (74-106) mg/dL Calcium (8.4-10.2) mg/dL Magnesium (1.6-2.3) mg/dL Total Bilirubin (0.2-1.3) mg/dL AST (17-59) U/L ALT (0-50) U/L Alkaline Phosphatase (38-126) U/L Serum Total Protein (6.3-8.2) g/dL Albumin (3.5-5.0) g/dL Urine Color YELLOW (YELLOW) Urine Appearance CLEAR (CLEAR) Urine pH 6.0 (5-6) Ur Specific [place] 1.024 (1.005-1.025) Urine Protein NEGATIVE (Negative) Urine Ketones NEGATIVE (NEGATIVE) Urine Blood NEGATIVE (0-5) Mendez/ul Urine Nitrite NEGATIVE (NEGATIVE) Urine Bilirubin NEGATIVE (NEGATIVE) Urine Urobilinogen 2 (0-1) mg/dL Ur Leukocyte Esterase NEGATIVE (NEGATIVE) Urine RBC (Auto) 0-2 (0-2) /HPF U Epithel Cells (Auto) NONE SEEN (FEW) /HPF Urine Mucus (Auto) SLIGHT (NEGATIVE) /HPF Urine Culture Reflexed NO (NO) Urine Glucose NEGATIVE (NEGATIVE) mg/dL Accuchecks Date 01/21/18 Time 07:30 Accucheck Value: 133 - Radiology Impressions Radiology Exams & Impressions: Radiology Procedures Category Date Time Status VENOUS BILATERAL EXTREMITY [US] Stat Exams 01/21/18 01:52 Completed - Other Procedures and Tests Respiratory Therapy 01/21/18 05:05 RT Screen per Nursing Assess Smoking Cessation Education ONCE 01/21/18 07:00 Respiratory Therapy Assessment DAILY Assessment/Plan (1) Cellulitis of both lower extremities Current Visit: Yes Status: Acute Assessment & Plan: Last Vital Signs Temp 97.8 F 01/21/18 06:50 Pulse 84 01/21/18 06:50 Resp 20 01/21/18 06:50 BP 111/77 01/21/18 06:50 Pulse Ox 97 01/21/18 06:50 Allergies hydroxyzine HCl [From Atarax] Adverse Reaction (Verified 01/21/18 00:09) Swelling affected kidney functions metformin Adverse Reaction (Verified 01/21/18 00:09) Active Medications Acetaminophen (Tylenol 325 Mg) 650 mg PO Q4H PRN PRN PRN Reason: PAIN AND/OR FEVER Stop: 02/20/18 03:11 Acetaminophen (Tylenol Extra Strength 500 Mg) 500 mg PO Q4H PRN PRN PRN Reason: PAIN Stop: 02/20/18 07:53 Last Admin: 01/21/18 08:07 Dose: 500 mg Hydrocodone Bitart/Acetaminophen ([place] 10/325 Mg Tablet) 1 tab PO TID ABHISHEK Stop: 01/26/18 09:59 Albuterol Sulfate (Proventil 2.5 Mg/3 Ml Neb) 2.5 mg IH Q4H PRN PRN PRN Reason: SHORTNESS OF BREATH/WHEEZING Stop: 02/20/18 03:11 Alprazolam (Xanax 0.5 Mg) 0.5 mg PO DAILY ABHISHEK Stop: 02/20/18 09:59 Furosemide (Lasix 20 Mg) 20 mg PO BID [facility]URETIC [facility] Stop: 02/20/18 09:59 Gabapentin (Neurontin 300 Mg) 600 mg PO QID [facility] Stop: 02/20/18 09:59 Sodium Chloride (Sodium Chloride 0.9% 1000 Ml) 1,000 mls @ 50 mls/hr IV .Q20H [facility] Stop: 02/20/18 00:44 Last Admin: 01/21/18 01:05 Dose: 50 mls/hr Piperacillin Sod/Tazobactam Sod (Zosyn 3.375gm/100 Ml D5w) 3.375 gm in 100 mls @ 200 mls/hr IV Q6HT [facility] Stop: 02/20/18 05:59 Last Admin: 01/21/18 05:29 Dose: Not Given Insulin Aspart (Novolog Insulin) 0 unit SQ UD PRN PRN Reason: ELEVATED GLUCOSE Stop: 02/20/18 03:25 Lisinopril (Zestril 20 Mg) 20 mg PO DAILY [facility] Stop: 02/20/18 09:59 Ondansetron HCl (Zofran 4 Mg/2 Ml Vial) 4 mg IV Q6H PRN PRN PRN Reason: NAUSEA/VOMITING Stop: 02/20/18 03:11 Pantoprazole Sodium (Protonix 40mg Tablet) 40 mg PO DAILY [facility] Stop: 02/20/18 09:59 Sitagliptin Phosphate (Januvia 50 Mg) 25 mg PO DAILY [facility] Stop: 02/20/18 09:59 Intake & Output 01/20/18 01/21/18 11:59 11:59 Intake Total 300 Output Total 400 Balance -100 Weight 134.1 kg Orders 01/21/18 07:00 Respiratory Therapy Assessment DAILY 01/21/18 07:54 Acetaminophen 500 mg [Tylenol Extra Strength 500 mg] 500 mg PO Q4H PRN PRN Lab Tests 01/21/18 01/21/18 01/21/18 02:15 02:15 02:15 WBC 8.6 RBC 5.26 Hgb 14.5 Hct 44.7 MCV 85.0 MCH 27.6 MCHC 32.4 RDW 15.2 H Plt Count 295 MPV 9.5 Gran % 54.3 Eos # (Auto) 0.12 Absolute Lymphs (auto) 3.13 Absolute Monos (auto) 0.64 Lymphocytes % 36.5 Monocytes % 7.5 Eosinophils % 1.4 Basophils % 0.3 Absolute Granulocytes 4.66 Basophils # 0.03 PT INR Sodium 136 L Potassium 4.0 Chloride 101 Carbon Dioxide 28 Anion Gap 10.8 BUN 19 Creatinine 0.71 Estimated GFR > 60.0 Glucose 152 H Calcium 9.1 Magnesium 2.0 Total Bilirubin 0.30 AST 26 ALT 30 Alkaline Phosphatase 106 Serum Total Protein 6.8 Albumin 3.9 Urine Color Urine Appearance Urine pH Ur Specific [place] Urine Protein Urine Ketones Urine Blood Urine Nitrite Urine Bilirubin Urine Urobilinogen Ur Leukocyte Esterase Urine RBC (Auto) U Epithel Cells (Auto) Urine Mucus (Auto) Urine Culture Reflexed Urine Glucose 01/21/18 01/21/18 02:15 04:00 WBC RBC Hgb Hct MCV MCH MCHC RDW Plt Count MPV Gran % Eos # (Auto) Absolute Lymphs (auto) Absolute Monos (auto) Lymphocytes % Monocytes % Eosinophils % Basophils % Absolute Granulocytes Basophils # PT 14.0 H INR 1.20 Sodium Potassium Chloride Carbon Dioxide Anion Gap BUN Creatinine Estimated GFR Glucose Calcium Magnesium Total Bilirubin AST ALT Alkaline Phosphatase Serum Total Protein Albumin Urine Color YELLOW Urine Appearance CLEAR Urine pH 6.0 Ur Specific [place] 1.024 Urine Protein NEGATIVE Urine Ketones NEGATIVE Urine Blood NEGATIVE Urine Nitrite NEGATIVE Urine Bilirubin NEGATIVE Urine Urobilinogen 2 Ur Leukocyte Esterase NEGATIVE Urine RBC (Auto) 0-2 U Epithel Cells (Auto) NONE SEEN Urine Mucus (Auto) SLIGHT Urine Culture Reflexed NO Urine Glucose NEGATIVE Code(s): L03.115 - CELLULITIS OF RIGHT LOWER LIMB; L03.116 - CELLULITIS OF LEFT LOWER LIMB (2) Hypertensive heart and chronic kidney disease with heart failure and with stage 5 chronic kidney disease, or end stage renal disease Current Visit: Yes Status: Chronic Code(s): I13.2 - HYP HRT & CHR KDNY DIS W HRT FAIL AND W STG 5 CHR KDNY/ESRD
[2018-01-21] MEDS: NEURONTIN 300 MG PO SCH ×4 (09:27→21:14)
[2018-01-21] MEDS: xanAX 0.5 MG PO SCH (09:28)
[2018-01-21] MEDS: LASIX 20 MG PO SCH ×2 (09:28→17:30)
[2018-01-21] MEDS: Zestril 20 MG PO SCH (09:28)
[2018-01-21] MEDS: Januvia 50 MG PO SCH (09:28)
[2018-01-21] MEDS: Protonix 40MG Tablet PO SCH (09:28)
[2018-01-21] MEDS ORDERED: Norco 10/325 MG Tablet PO SCH (10:00)
[2018-01-21] MEDS ORDERED: MEDICATION INTERVENTION MC SCH ×3 (12:45→13:00)
[2018-01-21] MEDS: MORPHINE SULFATE 2 MG INJ IV PRN ×3 (12:59→21:23)
[2018-01-21] MEDS: ENOXAPARIN SODIUM SQ SCH (14:00)
[2018-01-21] MEDS ORDERED: LIPITOR 40MG PO SCH (22:00)
[2018-01-22] MEDS: Zosyn 3.375GM/100 Ml D5W 3.375 GM/100 ML IVPB IV SCH (05:14)
[2018-01-22] MEDS: MORPHINE SULFATE 2 MG INJ IV PRN ×2 (05:14→09:36)
[2018-01-22 07:18] VITALS: BP 111/68; PULSE 77; O2SAT 92
[2018-01-22] MEDS: Protonix 40MG Tablet PO SCH (09:36)
[2018-01-22] MEDS: NEURONTIN 300 MG PO SCH (09:36)
[2018-01-22] MEDS: Zestril 20 MG PO SCH (09:36)
[2018-01-22] MEDS: Januvia 50 MG PO SCH (09:36)
[2018-01-22] MEDS: LASIX 20 MG PO SCH (09:36)
[2018-01-22] MEDS: xanAX 0.5 MG PO SCH (09:36)
[2018-01-22] MEDS: ENOXAPARIN SODIUM SQ SCH (09:36)
[2018-01-22] MEDS ORDERED: INSULIN DEGLUDEC IM SCH (10:00)
[2018-01-22] MEDS ORDERED: [UNRECOGNIZED DRUG - OTHER] IM SCH (10:00)
[2018-01-22] MEDS ORDERED: LIRAGLUTIDE IM SCH (10:00)
--- NOTE | 2018-01-22 12:03 | PCM.DS ---
Discharge Summary Date of Admission: 01/21/18 03:45 Admitting Physician: PETRONA BOWEN Primary Care Provider: PETRONA BOWEN Allergies Allergies hydroxyzine HCl [From Atarax] Adverse Reaction (Verified 01/21/18 00:09) Swelling affected kidney functions metformin Adverse Reaction (Verified 01/21/18 00:09) Hospital Summary - Hospital Course Hospital Course: Last Vital Signs Temp 96.9 F 01/22/18 07:17 Pulse 77 01/22/18 07:17 Resp 18 01/22/18 07:17 BP 111/68 01/22/18 07:17 Pulse Ox 92 L 01/22/18 07:17 Allergies hydroxyzine HCl [From Atarax] Adverse Reaction (Verified 01/21/18 00:09) Swelling affected kidney functions metformin Adverse Reaction (Verified 01/21/18 00:09) Intake & Output 01/22/18 01/23/18 11:59 11:59 Intake Total 3806 Output Total 3750 Balance 56 Orders 01/21/18 21:39 BiPap/CPAP ROUTINE 01/22/18 07:00 Pulse Oximetry .spot check 01/22/18 09:19 Discharge Routine 01/22/18 09:20 Discharge/Telephone Order Routine Lab Tests 01/21/18 00:30 Hemoglobin A1c 6.15 H - Vitals & Intake/Output Vital Signs: Vital Signs Temperature 96.9 F 01/22/18 07:17 Pulse Rate 77 01/22/18 07:17 Respiratory Rate 18 01/22/18 07:17 Blood Pressure 111/68 01/22/18 07:17 O2 Sat by Pulse Oximetry 92 L 01/22/18 07:17 Intake & Output: Intake & Output 01/20/18 01/21/18 01/22/18 01/23/18 11:59 11:59 11:59 11:59 Intake Total 300 3806 Output Total 400 3750 Balance -100 56 Weight 134.1 kg - Lab Result Diagrams: 01/21/18 02:15 01/21/18 02:15 Lab Results-Last 24 Hrs: Accuchecks Date 01/22/18 Date 01/21/18 Date 01/21/18 Time 07:30 Time 21:00 Time 16:30 Accucheck Value: 157 Accucheck Value: 130 Accucheck Value: 121 Lab Results-Last 24 Hours 01/21/18 Range/Units 00:30 Hemoglobin A1c 6.15 H (4.5-6.0) % Micro Results-Entire Visit: Accuchecks Date 01/22/18 Date 01/21/18 Date 01/21/18 Time 07:30 Time 21:00 Time 16:30 Accucheck Value: 157 Accucheck Value: 130 Accucheck Value: 121 - Radiology Exams Ordered Rad Exams-Entire Visit: Radiology Procedures Category Date Time Status VENOUS BILATERAL EXTREMITY [US] Stat Exams 01/21/18 01:52 Completed - Procedures and Test Procedures and Tests throughout Hospitalization: Therapy Orders & Screens 01/21/18 05:05 OT Screen per Nursing Assess Comment: Protocol Order Physician Instructions: Greater than 3 points order OT Admission Screening Reason For Exam: Triggered on Admission Diagnosis: Bilateral Lower Extremity Cellulitis Open Wound/Cellutlitis/Pressure Ulcers: Yes Acute Fx/ORIF/Change in wt bearing status: No Severe MUSCULOSKELETAL pain: No ADL Dysfunction: No Acute CVA w/Hemiparesis/Hemiplegia: No Decreased Functional Mobility/Strength: No Sprain/Strain: No Acute Post-op Mobility Dysfunction: No Total Points: 5 PT Screen per Nursing Assess ONCE Comment: Protocol Order Physician Instructions: Greater than 3 points order PT Admission Screenin Reason For Exam: Triggered on Admission Diagnosis: Bilateral Lower Extremity Cellulitis Open Wound/Cellutlitis/Pressure Ulcers: Yes Acute Fx/ORIF/Change in wt bearing status: No Severe MUSCULOSKELETAL pain: No ADL Dysfunction: No Acute CVA w/Hemiparesis/Hemiplegia: No Decreased Functional Mobility/Strength: No Sprain/Strain: No Acute Post-op Mobility Dysfunction: No Total Points: 5 RT Screen per Nursing Assess Comment: Protocol Order Physician Instructions: Greater than 3 points order RT Admission Screen Reason For Exam: Triggered on Admission Diagnosis: Bilateral Lower Extremity Cellulitis Diagnosis: Bilateral Lower Extremity Cellulitis Pneumonia: No Home O2: No Asthma: No CHF: No Home CPAP/BIPAP: Yes Home Nebs/MDI: Yes Total Points: 10 Smoking Cessation Education ONCE Comment: Diagnosis: Bilateral Lower Extremity Cellulitis Smoking Status: Current every day smoker How long have you smoked: 16 years Have you smoked in the past 12 months: No Approximately how many cigarettes per day: 1 pack a day Do you dip or chew tobacco: No If,Former Smoker,when did you quit: 7 yrs ago 01/21/18 07:00 Respiratory Therapy Assessment DAILY Comment: Diagnosis: BILATERAL LOWER EXTREMITY CELLLULITIS 01/21/18 21:39 BiPap/CPAP ROUTINE Comment: Diagnosis: Bilateral Lower Extremity swelling for 3-4 days Discharge Exam General Appearance: no apparent distress, alert Neurologic Exam: alert, oriented x 3, cooperative, normal mood/affect, nml cerebellar function, sensation nml, No motor deficits Skin Exam: normal color, warm, dry Eye Exam: PERRL, EOMI, eyes nml inspection Ears, Nose, Throat Exam: normal ENT inspection, pharynx normal, moist mucous membranes Neck Exam: normal inspection, non-tender, supple, full range of motion Respiratory Exam: normal breath sounds, lungs clear, No respiratory distress Cardiovascular Exam: regular rate/rhythm, normal heart sounds Gastrointestinal/Abdomen Exam: soft, No tenderness, No mass Extremity Exam: normal inspection, normal range of motion Back Exam: normal inspection, normal range of motion, No CVA tenderness, No vertebral tenderness Male Genitalia Exam: deferred Rectal Exam: deferred Final Diagnosis/Problem List - Final Discharge Diagnosis/Problem (1) Cellulitis of both lower extremities Status: Resolved (2) Hypertensive heart and chronic kidney disease with heart failure and with stage 5 chronic kidney disease, or end stage renal disease Status: Chronic - Discharge Discharge Date: 01/22/18 Disposition: Home, Self-Care Condition: Stable Prescriptions: New cephALEXin [Cephalexin] 500 mg PO QID #28 tablet Continue Sitagliptin Phosphate [Januvia] 25 mg PO DAILY Furosemide 20 mg [Lasix 20 mg] 20 mg PO BID PANTOPRAZOLE 40 mg Tablet [Protonix 40MG Tablet] 40 mg PO DAILY Lisinopril 20 mg [Zestril 20 MG] 20 mg PO DAILY Albuterol Common Canister [Proventil Common Canister] 2 puff IH Q4- 6HPRN PRN #1 puff PRN Reason: sob, wheezing Liraglutide [Victoza 2-Noel] 1.2 mg SQ DAILY Empagliflozin [Jardiance] 10 mg PO DAILY Insulin Degludec/Liraglutide [Xultophy 100 Unit-3.6MG/ml Pen] 4 units IM DAILY Gabapentin 600 mg PO QID Atorvastatin Calcium [Lipitor] 40 mg PO HS Hydrocodone/Acetaminophen [Hydrocodone-Acetamin 10-325 mg] 1 tab PO TID Alprazolam 0.5 mg [xanAX 0.5 MG] 0.5 mg PO DAILY Instructions: Cellulitis (Skin Infection), Adult (DC) Follow up with: BRANDO BOWLING [NON-STAFF PHY W/O PRIVILEGES] - Call for Appointment Forms: Discharge Instructions
== END 2018-01-22 10:25 | disposition home or self-care (01) ==
LOC: ED 23:45 → MED SURG 01-21 03:45
PROVIDERS: ADMIT General Practice; ATTEND General Practice
DX: L03.116 Cellulitis of left lower limb (principal); L03.115 Cellulitis of right lower limb; I13.2 Hypertensive heart and chronic kidney disease with heart failure and with stage 5 chronic kidney disease, or end stage renal disease; N18.5 Chronic kidney disease, stage 5; I50.9 Heart failure, unspecified; E11.9 Type 2 diabetes mellitus without complications; I25.810 Atherosclerosis of coronary artery bypass graft(s) without angina pectoris; E78.00 Pure hypercholesterolemia, unspecified; Z79.899 Other long term (current) drug therapy; F41.9 Anxiety disorder, unspecified; R60.0 Localized edema; K21.9 Gastro-esophageal reflux disease without esophagitis; E66.01 Morbid (severe) obesity due to excess calories; Z86.14 Personal history of Methicillin resistant Staphylococcus aureus infection; I25.2 Old myocardial infarction
CPT/HCPCS: 36415; 80053; 81001; 82962; 83036; 83735; 85025; 85610; 87040; 93970; 94660; 96360; 96361; 99285; G0378; J1650; J2270; J2543; J7609; A9270-GY

== ENCOUNTER 2018-03-14 13:55 | Emergency (ER) | payer MEDICARE ==
[2018-03-14 14:22] VITALS: O2SAT 97
[2018-03-14 14:37] LABS: BASOPHIL % 0.3 % (0.0-0.4); Basophil (Absolute #) 0.03 (0-0.4); Eosinophil % 0.8 % (0.00-5.0); Eosinophil (Absolute #) 0.09 (0-0.5); Granulocyte Absolute (ANC) 5.96 (1.4-6.9); Granulocytes % 55.7 % (36.0-66.0); Hematocrit 45.8 % (42-50); Hemoglobin 14.4 gm/dl (12.5-18.0); Lymphocyte (Absolute #) 3.86 (1.0-4.6); Mean Cell Volume 87.2 fl (78-100); Mean Corpuscular Hemoglobin 27.4 pg (26-32); Mean Corpuscular Hgb Concent. 31.4 g/dl (32-36); Monocyte (Absolute #) 0.77 (0.0-1.3); Monocytes % 7.2 % (0.0-12.0); Platelet Count 334 K/mm3 (150-450); Red Blood Count 5.25 M/mm3 (4.1-5.6); Red Cell Distribution Width 15.7 % (11.5-14.0); White Blood Count 10.7 K/mm3 (4.0-10.5)
[2018-03-14 14:42] LABS: Appearance CLEAR (CLEAR); Bilirubin NEGATIVE (NEGATIVE); Blood NEGATIVE Ery/ul (0-5); Glucose NEGATIVE (NEGATIVE); Ketones NEGATIVE (NEGATIVE); Leukocyte Esterase NEGATIVE (NEGATIVE); Nitrite NEGATIVE (NEGATIVE); Protein,Urine Dip NEGATIVE (Negative); Specific Gravity 1.017 (1.005-1.025); Urobilinogen NEGATIVE mg/dL (0-1)
[2018-03-14] MEDS ORDERED: Zofran 4 MG/2 ML VIAL IV ONE (14:46)
[2018-03-14] MEDS ORDERED: Zofran 4 MG/2 ML VIAL ONE (14:46)
--- NOTE | 2018-03-14 14:48 | XRAY ---
Indication: Chest tightness and short of breath 1 week. Comparison: November 21, 2017. PA/lateral chest again demonstrates normal heart and lungs with a few incidental tiny calcified granulomas. Bony thorax intact again with mild degenerative changes and sternotomy wires. No new/acute findings.
[2018-03-14 14:57] LABS: INR 1.11 (0.8-3.0)
[2018-03-14 15:12] LABS: ALBUMIN 4.2 g/dL (3.5-5.0); ALKALINE PHOSPHATASE 105 U/L (38-126); ANION GAP 14.4 MEQ/L (5-15); BLOOD UREA NITROGEN 20 mg/dL (9-20); CHLORIDE 101 mmol/L (98-107); Calcium 8.9 mg/dL (8.4-10.2); Carbon Dioxide 27 mmol/L (22-30); Creatinine 1 0.73 mg/dL (0.66-1.25); Glucose 115 mg/dL (74-106); NT PRO BNP 48.4 pg/mL (0-450); Potassium 4.7 mmol/L (3.5-5.1); SGOT/AST 32 U/L (17-59); SGPT/ALT 32 U/L (0-50); SODIUM 138 mmol/L (137-145); Total Protein 7.1 g/dL (6.3-8.2)
[2018-03-14] MEDS ORDERED: TORAdol 30 mg Injection IV ONE (15:33)
--- NOTE | 2018-03-14 15:51 | ERPHSYRPT ---
- History of Present Illness Source: patient, family Exam Limitations: no limitations Patient Subjective Stated Complaint: swelling to the right side of his body x 1 month. productive cough no fever.. green sputum. has hx TIA/Swelling and cellulitis. states has had chest pressure today. Triage Nursing Assessment: alert and oriented. no obvious SOB. staes shest pressure increasing today. + productive cough with green sputum.. his whole family is sick. states swelling to the right side of his body.. he states he feels that right side of his belly is swollen. noted whole avbdomen is round. lower legs red and swollen. + pedal pulses bilaterally. denies fever. Physician History: Pt is a 37 y/o male that came to the ER, secondary to swelling on right side of body (leg, abdomen). He states, coughing with sputum. No F/C/S. Pt states, he is taking ABX for cellulitis, but now it looks like the swelling in his R LE is worse. Pt denies N/V/D or abdominal pain. No palpitations. Timing/Duration: today Activities at Onset: none Severity of Dyspnea-Max: none Severity of Dyspnea-Current: none Modifying Factors: Improves With: nothing Associated Symptoms: cough, ankle swelling, leg swelling International travel in last 2 weeks: No Allergies/Adverse Reactions: hydroxyzine HCl [From Atarax] Adverse Reaction (Verified 03/14/18 14:22) Swelling affected kidney functions metformin Adverse Reaction (Verified 03/14/18 14:22) Home Medications: Furosemide 20 mg [Lasix 20 mg] 20 mg PO BID 01/28/16 [History] Lisinopril 20 mg [Zestril 20 MG] 20 mg PO DAILY 01/28/16 [History] PANTOPRAZOLE 40 mg Tablet [Protonix 40MG Tablet] 40 mg PO DAILY 01/28/16 [ History] Sitagliptin Phosphate [Januvia] 25 mg PO DAILY 01/28/16 [History] Gabapentin 600 mg PO QID 11/21/17 [History] Insulin Degludec/Liraglutide [Xultophy 100 Unit-3.6MG/ml Pen] 4 units IM DAILY 11/21/17 [History] Alprazolam 0.5 mg [xanAX 0.5 MG] 0.5 mg PO DAILY 01/21/18 [History] Atorvastatin Calcium [Lipitor] 40 mg PO HS 01/21/18 [History] Buprenorphine HCl/Naloxone HCl [Suboxone 8 mg-2 mg Tablet Sl] 1 each SL BID 08/25 [History] Hylan G-F 20 [Synvisc] 16 mg IU 03/14/18 [History] Hx Tetanus, Diphtheria Vaccination/Date Given: Yes Hx Influenza Vaccination/Date Given: Yes Hx Pneumococcal Vaccination/Date Given: Yes Immunizations Up to Date: Yes - Review of Systems Constitutional: Fatigue, Weakness Eyes: No Symptoms Ears, Nose, & Throat: No Symptoms Respiratory: Cough Cardiac: Edema Abdominal/Gastrointestinal: Other (right sided abdominal swelling) Genitourinary Symptoms: No Dysuria Musculoskeletal: No Back Pain, No Neck Pain Skin: Cellulitis Neurological: No Dizziness, No Focal Weakness, No Sensory Changes - Past Medical History Pertinent Past Medical History: Yes Neurological History: Stroke, Other ENT History: Cataracts Cardiac History: Arrhythmia, Congestive Heart Failure, High Cholesterol, Hypertension, Myocardial Infarction ([place]) Respiratory History: Bronchitis, Pneumonia, Sleep Apnea Endocrine Medical History: Diabetes Type II Musculoskeletal History: No Pertinent History GI Medical History: GERD History: Renal Disease Psycho-Social History: Anxiety, Depression Male Reproductive Disorders: Prostate Problems Other Medical History: PT HAD A STROKE IN FEB 2012. KS in Apr 2011. [place] in September in 2015. Open heart in May. cataract repair R eye , kidney failure in 2013 and 2015 - Past Surgical History Past Surgical History: Yes Neuro Surgical History: No Pertinent History Cardiac: CABG, Cardiac Catheterization Respiratory: No Pertinent History Gastrointestinal: No Pertinent History Genitourinary: No Pertinent History Musculoskeletal: Orthopedic Surgery Male Surgical History: No Pertinent History Other Surgical History: ACL REPLACED; CYST REMOVED IN LEFT ARM; CATARACT SURGERY IN 2010 - Social History Smoking Status: Current every day smoker How long have you smoked: 16 years Exposure to second hand smoke: No Alcohol Use: None Drug Use: none Patient Lives Alone: No Significant Family History: heart disease, diabetes, hypertension - Nursing Vital Signs Nursing Vital Signs: Initial Vital Signs Temperature 98.2 F 03/14/18 14:13 Pulse Rate 83 03/14/18 14:13 Respiratory Rate 16 03/14/18 14:13 Blood Pressure 152/89 03/14/18 14:13 O2 Sat by Pulse Oximetry 97 03/14/18 14:13 Pain Scale Pain Intensity 6 - Physical Exam General Appearance: no apparent distress, alert Eye Exam: PERRL/EOMI Ears, Nose, Throat Exam: hearing grossly normal, normal ENT inspection Neck Exam: normal inspection, supple Respiratory Exam: normal breath sounds, lungs clear, airway intact Cardiovascular/Chest Exam: normal heart sounds, regular rate/rhythm Abdominal/Gastrointestinal Exam: soft, other (obese.) Rectal Exam: deferred Extremity Exam: non-tender, normal range of motion, normal inspection, no calf tenderness, no pedal edema Neurologic Exam: alert, oriented x 3, cooperative, automation application engineer II-XII nml as tested, sensation nml, No motor deficits Skin Exam: other (venous stasis changes b/l) SpO2 Interpretation: normal SpO2: 97 Oxygen Delivery: Room Air - Course EKG Interpreted by Me: RATE (77), Sinus Rhythm, NORMAL ST-T - Radiology Exams Chest X-ray Interpretation: Negative (No acute or new findings) Ordered Tests: Active Orders 24 hr Category Date Time Status Sewing Machine Tester STAT Care 03/14/18 14:22 Active EKG-ER Only STAT Care 03/14/18 14:20 Active IV Insertion STAT Care 03/14/18 14:20 Active Oxygen-ED Only NASAL CANNULA 2 lpm Care 03/14/18 14:20 Active CHEST 2 VIEWS (PA AND LAT) Stat Exams 03/14/18 14:22 Completed VENOUS UNILAT/LIMITED EXTREMIT [US] Stat Exams 03/14/18 15:29 Taken CBC W DIFF Stat Lab 03/14/18 14:37 Completed CMP Stat Lab 03/14/18 14:37 Completed D-DIMER QUANTITATION Stat Lab 03/14/18 14:37 Completed Lactic Acid Stat Lab 03/14/18 14:26 Completed MAGNESIUM Stat Lab 03/14/18 14:37 Completed NT PRO BNP Stat Lab 03/14/18 14:37 Completed PROTIME WITH INR Stat Lab 03/14/18 14:37 Completed TROPONIN Q3H Lab 03/14/18 14:37 Completed TROPONIN Q3H Lab 03/14/18 17:30 Ordered TROPONIN Q3H Lab 03/14/18 20:30 Ordered TROPONIN Q3H Lab 03/14/18 23:30 Ordered TROPONIN Q3H Lab 03/15/18 02:30 Ordered UA W/RFX UR CULTURE Stat Lab 03/14/18 14:37 Completed Medication Summary Discontinued Medications Generic Name Dose Route Start Last Admin Trade Name Judy PRN Reason Stop Dose Admin Ketorolac Tromethamine 30 mg 03/14/18 15:33 Toradol 30 Mg Injection IV 03/14/18 15:34 STAT ONE Ondansetron HCl 4 mg 03/14/18 14:46 03/14/18 14:48 Zofran 4 Mg/2 Ml Vial IV 03/14/18 14:47 4 mg STAT ONE Administration Ondansetron HCl Confirm 03/14/18 14:46 Zofran 4 Mg/2 Ml Vial Administered 03/14/18 14:47 Dose 4 mg .ROUTE .STK-MED ONE Lab/Rad Data: Laboratory Result Diagrams 03/14/18 14:37 03/14/18 14:37 Laboratory Results 03/14/18 03/14/18 03/14/18 Range/Units 14:37 14:37 14:37 WBC (4.0-10.5) K/mm3 RBC (4.1-5.6) M/mm3 Hgb (12.5-18.0) gm/dl Hct (42-50) % MCV (78-100) fl MCH (26-32) pg MCHC (32-36) g/dl RDW (11.5-14.0) % Plt Count (150-450) K/mm3 MPV (6-9.5) fl Gran % (36.0-66.0) % Eos # (Auto) (0-0.5) Absolute Lymphs (auto) (1.0-4.6) Absolute Monos (auto) (0.0-1.3) Lymphocytes % (24.0-44.0) % Monocytes % (0.0-12.0) % Eosinophils % (0.00-5.0) % Basophils % (0.0-0.4) % Absolute Granulocytes (1.4-6.9) Basophils # (0-0.4) PT 12.9 H (8.83-12.87) SECONDS INR 1.11 (0.8-3.0) D-Dimer 257 (215-500) ng/mL Sodium (137-145) mmol/L Potassium (3.5-5.1) mmol/L Chloride (98-107) mmol/L Carbon Dioxide (22-30) mmol/L Anion Gap (5-15) MEQ/L BUN (9-20) mg/dL Creatinine (0.66-1.25) mg/dL Estimated GFR ML/MIN Glucose (74-106) mg/dL Lactic Acid (0.4-2.0) Calcium (8.4-10.2) mg/dL Magnesium (1.6-2.3) mg/dL Total Bilirubin (0.2-1.3) mg/dL AST (17-59) U/L ALT (0-50) U/L Alkaline Phosphatase (38-126) U/L Troponin I < 0.012 (0.000-0.034) ng/mL NT-Pro-B Natriuret Pep (0-450) pg/mL Serum Total Protein (6.3-8.2) g/dL Albumin (3.5-5.0) g/dL Urine Color YELLOW (YELLOW) Urine Appearance CLEAR (CLEAR) Urine pH 6.0 (5-6) Ur Specific Baggs 1.017 (1.005-1.025) Urine Protein NEGATIVE (Negative) Urine Ketones NEGATIVE (NEGATIVE) Urine Blood NEGATIVE (0-5) Mendez/ul Urine Nitrite NEGATIVE (NEGATIVE) Urine Bilirubin NEGATIVE (NEGATIVE) Urine Urobilinogen NEGATIVE (0-1) mg/dL Ur Leukocyte Esterase NEGATIVE (NEGATIVE) Urine WBC (Auto) NONE (0-5) /HPF Urine RBC (Auto) NONE (0-2) /HPF U Epithel Cells (Auto) NONE (FEW) /HPF Urine Bacteria (Auto) NONE (NEGATIVE) /HPF Urine Culture Reflexed NO (NO) Urine Glucose NEGATIVE (NEGATIVE) mg/dL 03/14/18 03/14/18 03/14/18 Range/Units 14:37 14:37 14:26 WBC 10.7 H (4.0-10.5) K/mm3 RBC 5.25 (4.1-5.6) M/mm3 Hgb 14.4 (12.5-18.0) gm/dl Hct 45.8 (42-50) % MCV 87.2 (78-100) fl MCH 27.4 (26-32) pg MCHC 31.4 L (32-36) g/dl RDW 15.7 H (11.5-14.0) % Plt Count 334 (150-450) K/mm3 MPV 10.0 H (6-9.5) fl Gran % 55.7 (36.0-66.0) % Eos # (Auto) 0.09 (0-0.5) Absolute Lymphs (auto) 3.86 (1.0-4.6) Absolute Monos (auto) 0.77 (0.0-1.3) Lymphocytes % 36.0 (24.0-44.0) % Monocytes % 7.2 (0.0-12.0) % Eosinophils % 0.8 (0.00-5.0) % Basophils % 0.3 (0.0-0.4) % Absolute Granulocytes 5.96 (1.4-6.9) Basophils # 0.03 (0-0.4) PT (8.83-12.87) SECONDS INR (0.8-3.0) D-Dimer (215-500) ng/mL Sodium 138 (137-145) mmol/L Potassium 4.7 (3.5-5.1) mmol/L Chloride 101 (98-107) mmol/L Carbon Dioxide 27 (22-30) mmol/L Anion Gap 14.4 (5-15) MEQ/L BUN 20 (9-20) mg/dL Creatinine 0.73 (0.66-1.25) mg/dL Estimated GFR > 60.0 ML/MIN Glucose 115 H (74-106) mg/dL Lactic Acid 1.4 (0.4-2.0) Calcium 8.9 (8.4-10.2) mg/dL Magnesium 2.1 (1.6-2.3) mg/dL Total Bilirubin 0.40 (0.2-1.3) mg/dL AST 32 (17-59) U/L ALT 32 (0-50) U/L Alkaline Phosphatase 105 (38-126) U/L Troponin I (0.000-0.034) ng/mL NT-Pro-B Natriuret Pep 48.4 (0-450) pg/mL Serum Total Protein 7.1 (6.3-8.2) g/dL Albumin 4.2 (3.5-5.0) g/dL Urine Color (YELLOW) Urine Appearance (CLEAR) Urine pH (5-6) Ur Specific Baggs (1.005-1.025) Urine Protein (Negative) Urine Ketones (NEGATIVE) Urine Blood (0-5) Mendez/ul Urine Nitrite (NEGATIVE) Urine Bilirubin (NEGATIVE) Urine Urobilinogen (0-1) mg/dL Ur Leukocyte Esterase (NEGATIVE) Urine WBC (Auto) (0-5) /HPF Urine RBC (Auto) (0-2) /HPF U Epithel Cells (Auto) (FEW) /HPF Urine Bacteria (Auto) (NEGATIVE) /HPF Urine Culture Reflexed (NO) Urine Glucose (NEGATIVE) mg/dL - Progress Progress: unchanged Air Movement: fair Blood Culture(s) Obtained: No Antibiotics given: No Will see patient in: office Counseled pt/family regarding: lab results, need for follow-up, rad results - Departure Time of Disposition: 03:55 Departure Disposition: Home Clinical Impression: Viral illness Condition: Stable Critical Care Time: No Referrals: BRANDO BOWLING [Primary Care Provider] - Instructions: Dependent Edema (DC), Peripheral Edema -- Bilateral
[2018-03-14] MEDS ORDERED: TORAdol 30 mg Injection ONE (16:02)
--- NOTE | 2018-03-14 16:18 | XRAY ---
Indication: Right leg edema. Two-dimensional sonogram and color Doppler imaging of the major venous vessels of the right leg was performed. Comparison: January 21, 2018. Again no thrombus seen in the examined deep venous vessels of the right leg including greater saphenous vein. Veins demonstrate normal compressibility. Venous waveforms are normal with and without augmentation. Incidental mild subcutaneous edema at the level of the ankle. Impression: Right leg again negative for DVT.
[2018-03-14 16:20] VITALS: BP 148/80; PULSE 87
== END 2018-03-14 16:20 | disposition home or self-care (01) ==
LOC: ED 13:55
DX: B34.9 Viral infection, unspecified (principal); Z79.899 Other long term (current) drug therapy; E11.9 Type 2 diabetes mellitus without complications; Z79.4 Long term (current) use of insulin; M79.89 Other specified soft tissue disorders; R19.00 Intra-abdominal and pelvic swelling, mass and lump, unspecified site
CPT/HCPCS: 36000; 36415; 71046; 80053; 81001; 83605; 83735; 83880; 84484; 85025; 85379; 85610; 93005; 93971; 96374; 96375; 99284; J1885; J2405